=== PATIENT | male | born 1985 | race African-American/Black ===

== ENCOUNTER 2016-07-31 12:17 | Emergency (ER) | payer OTHER ==
[~2016-07-31 12:17] MED LIST: HYDR-2666; HYDR-971 PO; ONDA4TAB7 PO; lisinopril
[2016-07-31 12:45] VITALS: BP 140/86
--- NOTE | 2016-07-31 14:14 | RAD ---
Left ankle, 3 views, 07/31/2016: History: Injury, ankle pain No fracture or dislocation is identified. The soft tissues are unremarkable. IMPRESSION: No acute left ankle abnormality is detected.
--- NOTE | 2016-07-31 14:19 | PHYS DOC ---
Past Medical History Past Medical History: Hypertension, Pancreatitis Past Surgical History: Cholecystectomy Alcohol Use: None Drug Use: None, Cocaine Adult General Chief Complaint Chief Complaint: ANKLE PROBLEM HPI HPI Patient is a 31 year old male with complaint of atraumatic left ankle pain for approximately 3 days. Patient states that he believes is due to his new workout regimen that he just began recently. He states he has fractured his ankle past. Denies any known hardware within the ankle itself. Review of Systems Review of Systems Constitutional: Denies fever or chills [] Eyes: Denies change in visual acuity, redness, or eye pain [] HENT: Denies nasal congestion or sore throat [] Respiratory: Denies cough or shortness of breath [] Cardiovascular: No additional information not addressed in HPI [] GI: Denies abdominal pain, nausea, vomiting, bloody stools or diarrhea [] : Denies dysuria or hematuria [] Musculoskeletal: Denies back pain or joint pain [] Integument: Denies rash or skin lesions [] Neurologic: Denies headache, focal weakness or sensory changes [] Endocrine: Denies polyuria or polydipsia [] Allergies Allergies Allergies Coded Allergies Type Severity Reaction Last Updated Verified No Known Drug Allergies 12/24/15 No Physical Exam Physical Exam Constitutional: Well developed, well nourished, no acute distress, non-toxic appearance. [] HENT: Normocephalic, atraumatic, bilateral external ears normal, oropharynx moist, no oral exudates, nose normal. [] Eyes: PERRLA, EOMI, conjunctiva normal, no discharge. [] Neck: Normal range of motion, no tenderness, supple, no stridor. [] Cardiovascular:Heart rate regular rhythm, no murmur [] Lungs & Thorax: Bilateral breath sounds clear to auscultation [] Abdomen: Bowel sounds normal, soft, no tenderness, no masses, no pulsatile masses. [] Skin: Warm, dry, no erythema, no rash. [] Back: No tenderness, no CVA tenderness. [] Extremities: Left lower leg and ankle is normal in appearance. There is mild swelling of the medial malleolus. There is no focal area of tenderness, instability or crepitus. Left foot is normal in appearance. Skin is warm and dry. Patient strong dorsalis pedis and posterior tibialis pulses. Drawer and talar tilt are stable. Neurologic: Alert and oriented X 3, normal motor function, normal sensory function, no focal deficits noted. [] Psychologic: Affect normal, judgement normal, mood normal. [] Current Patient Data Vital Signs Vital Signs Date Time Temp Pulse Resp B/P Pulse Ox O2 Delivery O2 Flow Rate FiO2 07/31/16 12:45 97.9 92 20 100 Room Air 97.9 EKG EKG [] Radiology/Procedures Radiology/Procedures [facility] [address] [place] [address] IMAGING REPORT Signed PATIENT: BRANDO KIRAN ACCOUNT: [id number] : 1985 LOCATION: ER AGE: 31 SEX: M EXAM STATUS: PRE ER ORD. PHYSICIAN: CARLA NEAL REASON: pain/swelling to medial malleolus PROCEDURE: ANKLE LEFT 3V Left ankle, 3 views, 07/31/2016: History: Injury, ankle pain No fracture or dislocation is identified. The soft tissues are unremarkable. IMPRESSION: No acute left ankle abnormality is detected. DICTATED and SIGNED BY: TERRANCE JOSEPH MD DATE: 07/31/16 1411 CC: CARLA NEAL; NO PCP ~ Course & Med Decision Making Course & Med Decision Making Pertinent Labs and Imaging studies reviewed. (See chart for details) [] Dragon Disclaimer Dragon Disclaimer This electronic medical record was generated, in whole or in part, using a voice recognition dictation system. Departure Departure Impression: Primary Impression: Ankle pain Disposition: HOME, SELF-CARE Condition: GOOD Referrals: NO PCP (PCP) Patient Instructions: Ankle Pain Additional Instructions: 1. As discussed the x-rays of your ankle here today are normal. 2. Take the medication as prescribed. 3. Use the tablet provided for assistance in finding a primary care doctor to provide follow-up care. You can call one of the offices Wednesday to schedule follow-up appointment. Scripts Naproxen Sodium (Anaprox Ds)550 Mg [id number] Mg PO twice a day #20 Prov:CARLA NEAL 07/31/16 CARLA NEAL Jul 31, 2016 14:19
[2016-07-31] MEDS ORDERED: NAPR550T PO (14:34)
== END 2016-07-31 14:39 | disposition home or self-care (01) ==
LOC: ER 12:17
DX: M25.572 Pain in left ankle and joints of left foot (principal); I10 Essential (primary) hypertension; F14.10 Cocaine abuse, uncomplicated; Z87.81 Personal history of (healed) traumatic fracture
CPT/HCPCS: 73610; 99284

== ENCOUNTER 2016-10-23 17:30 | Emergency (ER) | payer OTHER ==
[~2016-10-23 17:30] MED LIST changes: +NAPR550T PO
[2016-10-23 18:42] LABS: BASO # 0.1 x10^3/uL (0.0-0.2); BASO % 1 % (0-3); EOS % 3 % (0-3); HEMATOCRIT 36.2 % (39.0-53.0); HEMOGLOBIN 11.9 g/dL (13.0-17.5); LYMPH # 3.7 x10^3/uL (1.0-4.8); LYMPH % 45 % (24-48); MEAN CORPUSCULAR HEMOGLOBIN 25 pg (25-35); MEAN CORPUSCULAR HGB CONC 33 g/dL (31-37); MEAN CORPUSCULAR VOLUME 75 fL (79-100); MONO % 7 % (0-9); NEUT % 45 % (31-73); PLATELET COUNT 262 x10^3/uL (140-400); RED BLOOD COUNT 4.82 x10^6/uL (4.30-5.70); RED CELL DISTRIBUTION WIDTH 14.6 % (11.5-14.5); WHITE BLOOD COUNT 8.2 x10^3/uL (4.0-11.0)
[2016-10-23 18:42] LABS: NEG OBC FOB NEG; POS OBC FOB POS
[2016-10-23] MEDS ORDERED: HYDROmorphone 2 MG/ML VIAL IV ONE (19:00)
[2016-10-23] MEDS ORDERED: PANTOPRAZOLE IV PUSH 40 MG VIAL. IVP ONE (19:00)
[2016-10-23] MEDS ORDERED: ONDANSETRON PF 4 MG/2 ML VIAL. IV ONE (19:00)
[2016-10-23 19:49] LABS: CREATININE 0.9 mg/dL (0.7-1.3); GFR 119.1; POTASSIUM 3.8 mmol/L (3.5-5.1)
[2016-10-23 19:55] LABS: ALBUMIN 3.4 g/dL (3.4-5.0); ALBUMIN/GLOBULIN RATIO 0.9 (1.0-1.7); TOTAL BILIRUBIN 0.1 mg/dL (0.2-1.0); TOTAL PROTEIN 7.4 g/dL (6.4-8.2)
[2016-10-23 19:58] VITALS: BP 132/64
[2016-10-23] MEDS ORDERED: HYDR-971 PO (20:27)
[2016-10-23] MEDS ORDERED: ONDA4TAB7 PO (20:27)
--- NOTE | 2016-10-23 20:28 | PHYS DOC ---
Past Medical History Past Medical History: Hypertension, Pancreatitis Past Surgical History: Cholecystectomy Alcohol Use: None Drug Use: None Adult General Chief Complaint Chief Complaint: BLOODY STOOL HPI HPI 31-year-old male is presenting with significant epigastrium and left upper quadrant pain with what he states to be dark stools for the last several days. Patient states he recently had endoscopy that did show some ulcerations. He was prescribed omeprazole 20 mg daily and he is compliant with this therapy but states his symptoms have not improved. Reports his stools are somewhat dark but can be bright red. He also has some rectal pain. He believes this is all a result of prior alcohol abuse. He has history of chronic pancreatitis as well. He denies any recent drugs or alcohol use. He rates his pain an 8/10 on the pain scale and is all localized to the left upper quadrant. Review of Systems Review of Systems Constitutional: Denies fever or chills [] Eyes: Denies change in visual acuity, redness, or eye pain [] HENT: Denies nasal congestion or sore throat [] Respiratory: Denies cough or shortness of breath [] Cardiovascular: No additional information not addressed in HPI [] GI: Has abdominal pain, denies nausea, denies vomiting, has bloody stools or diarrhea [] : Denies dysuria or hematuria [] Musculoskeletal: Denies back pain or joint pain [] Integument: Denies rash or skin lesions [] Neurologic: Denies headache, focal weakness or sensory changes [] Endocrine: Denies polyuria or polydipsia [] Current Medications Current Medications Current Medications Medications (Trade) Dose Ordered Sig/Salvador Start Time Stop Time Status Last Admin Dose Admin Hydromorphone HCl (Dilaudid) 1 mg 1X ONCE 10/23/16 19:00 10/23/16 19:01 DC 10/23/16 19:13 1 MG Ondansetron HCl (Zofran) 4 mg 1X ONCE 10/23/16 19:00 10/23/16 19:01 DC 10/23/16 19:12 4 MG Pantoprazole Sodium (Protonix Vial) 80 mg 1X ONCE 10/23/16 19:00 10/23/16 19:01 DC 10/23/16 19:15 80 MG Allergies Allergies Allergies Coded Allergies Type Severity Reaction Last Updated Verified No Known Drug Allergies 12/24/15 No Physical Exam Physical Exam Constitutional: Well developed, well nourished, no acute distress, non-toxic appearance. [] HENT: Normocephalic, atraumatic, bilateral external ears normal, oropharynx moist, no oral exudates, nose normal. [] Eyes: PERRLA, EOMI, conjunctiva normal, no discharge. [] Neck: Normal range of motion, no tenderness, supple, no stridor. [] Cardiovascular:Heart rate regular rhythm, no murmur [] Lungs & Thorax: Bilateral breath sounds clear to auscultation [] Abdomen: Bowel sounds normal, soft, no tenderness, no masses, no pulsatile masses. [] Skin: Warm, dry, no erythema, no rash. [] Back: No tenderness, no CVA tenderness. [] Extremities: No tenderness, no cyanosis, no clubbing, ROM intact, no edema. [] Neurologic: Alert and oriented X 3, normal motor function, normal sensory function, no focal deficits noted. [] Psychologic: Affect normal, judgement normal, mood normal. [] Current Patient Data Vital Signs Vital Signs Date Time Temp Pulse Resp B/P (MAP) Pulse Ox O2 Delivery O2 Flow Rate FiO2 10/23/16 20:11 Room Air 10/23/16 18:14 98.0 88 20 140/81 (100) 98 98.0 Lab Values Laboratory Tests Test 10/23/16 18:15 10/23/16 18:30 Stool Occult Blood Negative (NEG) White Blood Count 8.2 x10^3/uL (4.0-11.0) Red Blood Count 4.82 x10^6/uL (4.30-5.70) Hemoglobin 11.9 g/dL (13.0-17.5) L Hematocrit 36.2 % (39.0-53.0) L Mean Corpuscular Volume 75 fL (79-100) L Mean Corpuscular Hemoglobin 25 pg (25-35) Mean Corpuscular Hemoglobin Concent 33 g/dL (31-37) Red Cell Distribution Width 14.6 % (11.5-14.5) H Platelet Count 262 x10^3/uL (140-400) Neutrophils (%) (Auto) 45 % (31-73) Lymphocytes (%) (Auto) 45 % (24-48) Monocytes (%) (Auto) 7 % (0-9) Eosinophils (%) (Auto) 3 % (0-3) Basophils (%) (Auto) 1 % (0-3) Neutrophils # (Auto) 3.7 x10^3uL (1.8-7.7) Lymphocytes # (Auto) 3.7 x10^3/uL (1.0-4.8) Monocytes # (Auto) 0.5 x10^3/uL (0.0-1.1) Eosinophils # (Auto) 0.2 x10^3/uL (0.0-0.7) Basophils # (Auto) 0.1 x10^3/uL (0.0-0.2) Sodium Level 140 mmol/L (136-145) Potassium Level 3.8 mmol/L (3.5-5.1) Chloride Level 103 mmol/L (98-107) Carbon Dioxide Level 27 mmol/L (21-32) Anion Gap 10 (6-14) Blood Urea Nitrogen 8 mg/dL (8-26) Creatinine 0.9 mg/dL (0.7-1.3) Estimated GFR (Cockcroft-Gault) 119.1 BUN/Creatinine Ratio 9 (6-20) Glucose Level 120 mg/dL (70-99) H Calcium Level 9.0 mg/dL (8.5-10.1) Total Bilirubin 0.1 mg/dL (0.2-1.0) L Aspartate Amino Transferase (AST) 17 U/L (15-37) Alanine Aminotransferase (ALT) 28 U/L (16-63) Alkaline Phosphatase 97 U/L (46-116) Total Protein 7.4 g/dL (6.4-8.2) Albumin 3.4 g/dL (3.4-5.0) Albumin/Globulin Ratio 0.9 (1.0-1.7) L Lipase 101 U/L (73-393) Laboratory Tests 10/23/16 18:30 Laboratory Tests 10/23/16 18:30 EKG EKG [] Radiology/Procedures Radiology/Procedures [] Course & Med Decision Making Course & Med Decision Making Pertinent Labs and Imaging studies reviewed. (See chart for details) 31-year-old male with some mild epigastrium and left upper quadrant pain with concern for bloody bowel movements. He has a stool occult sample that is negative for blood. His hemoglobin is 11.9. His pain has been controlled relatively well. I do not see an indication this time do any other laboratory workup. I'll be discharging him with instruction to increase his omeprazole to twice daily and to follow-up with his GI doctor. Return precautions were provided if his bleeding should increase or his pain should worsen despite taking his medications. Dragon Disclaimer Dragon Disclaimer This electronic medical record was generated, in whole or in part, using a voice recognition dictation system. Departure Departure Impression: Primary Impression: Upper abdominal pain Additional Impression: Rectal bleed Disposition: 01 HOME, SELF-CARE Condition: IMPROVED Referrals: LIBBY RIBEIRO MD Patient Instructions: Peptic Ulcer Disease, [id number], Rectal Bleeding, Easy -to-Read Additional Instructions: Please follow up with your GI doctor as discussed in the next 2-3 days for your abdominal pain and bleeding. Take your omeprazole twice daily and pain medication as needed. Continue to drink plenty of fluids. Return to the ER if you develop any worsening of your symptoms. Scripts Ondansetron Hcl (ZOFRAN) 4 Mg Tablet 4 MG PO BID Y for NAUSEA/VOMITING, #10 TAB Prov: LIBBY HOWARD DO 10/23/16 Hydrocodone/Apap 5-325 (NORCO 5-325 TABLET) 1 Each Tablet 1 TAB PO PRN Q6HRS Y for PAIN, #10 TAB 0 Refills Prov: LIBBY HOWARD DO 10/23/16 Problem Qualifiers LIBBY HOWARD DO October 23, 2016 20:28
== END 2016-10-23 20:31 | disposition home or self-care (01) ==
LOC: ER 17:30
DX: K62.5 Hemorrhage of anus and rectum (principal); I10 Essential (primary) hypertension
CPT/HCPCS: 36415; 80053; 82274; 83690; 85027; 96374; 96375; 99284; C9113; J1170; J2405

== ENCOUNTER 2017-01-11 03:38 | Emergency (ER) | payer OTHER ==
[~2017-01-11] VITALS: Ht 170.2 cm; Wt 97.1 kg
[~2017-01-11 03:38] MED LIST changes: -HYDR-2666; +HYDR-2758
--- NOTE | 2017-01-11 03:48 | PHYS DOC ---
Past Medical History Past Medical History: Hypertension, Pancreatitis Past Surgical History: Cholecystectomy Alcohol Use: None Drug Use: None Adult General Chief Complaint Chief Complaint: FOOT INJURY PAIN HPI HPI Patient is a 31 year old M who presents with right foot pain. Patient states he twisted his foot while taking his dog out didn't drop something out of the freezer onto his right foot and complains of pain to the top of his right midfoot. Patient denies any other injuries. Patient is able to ambulate however with pain. Patient has no other complaints. Review of Systems Review of Systems GEN: Denies fevers, chills, sweats HEENT: Denies blurred vision, sore throat CV: Denies chest pain RESP: Denies shortness of air, cough GI: Denies n/v/d NEURO: Denies confusion, dizziness MSK: Right foot pain Current Medications Current Medications Current Medications Medications (Trade) Dose Ordered Sig/Salvador Start Time Stop Time Status Last Admin Dose Admin Ketorolac Tromethamine (Toradol Im) 60 mg 1X ONCE 01/11/17 05:00 01/11/17 05:01 01/11/17 04:44 60 MG Allergies Allergies Allergies Coded Allergies Type Severity Reaction Last Updated Verified No Known Drug Allergies 12/24/15 No Physical Exam Physical Exam GEN.: No apparent distress. Alert and oriented. HEENT: Head is normocephalic, atraumatic NECK: Supple. LUNGS: CTAB. HEART: RRR, S1, S2 present. Peripheral pulses intact ABDOMEN: Soft, nontender. Positive bowel sounds. EXTREMITIES: Without any cyanosis, tenderness palpation over the right midfoot, no swelling or erythema noted, capillary refill to the toes less than 2 seconds, positive dorsal pedis pulse present NEUROLOGIC: Normal speech, normal tone PSYCHIATRIC: Normal affect, normal mood. SKIN: No ulcerations Current Patient Data Vital Signs Vital Signs Date Time Temp Pulse Resp B/P (MAP) Pulse Ox O2 Delivery O2 Flow Rate FiO2 01/11/17 03:49 98.5 100 18 100 Room Air 98.5 EKG EKG [] Radiology/Procedures Radiology/Procedures X-ray of the foot shows no obvious fracture [] Course & Med Decision Making Course & Med Decision Making Pertinent Labs and Imaging studies reviewed. (See chart for details) ED course: Patient was seen and examined emergency room upon arrival x-ray of the right foot was ordered 0441: Updated patient on x-ray results and plan to discharge home with short- term follow-up with his PCP MDM: After reviewing the chart, CC/HPI/PMH, physical exam, [radiological results], I do not believe the patient sustained a significant injury to his right foot warranting further workup and/or admission at this time. Patient is stable for discharge. Recommended follow-up with his PCP in one to 2 days. Additional verbal discharge instructions were provided to the patient and that if symptoms get worse or any new symptoms arise that are worrisome to the patient he is to return to the emergency room immediately [] Dragon Disclaimer Dragon Disclaimer This electronic medical record was generated, in whole or in part, using a voice recognition dictation system. Departure Departure Impression: Primary Impression: Contusion of foot, right Disposition: 01 HOME, SELF-CARE Condition: IMPROVED Referrals: KENDELL VOSS MD (PCP) Patient Instructions: Foot Contusion, [id number] Additional Instructions: Please follow up with your family physician in the next one to 2 days and return symptoms increase Scripts Ibuprofen (IBUPROFEN) 800 Mg Tablet 800 MG PO PRN Q8MIN Y for INFLAMMATION for 10 Days, #30 TAB Prov: SÁNCHEZ LAGUNA DO 01/11/17 SÁNCHEZ LAGUNA DO Jan 11, 2017 03:48
[2017-01-11] MEDS ORDERED: IBUP-1060 PO (04:44)
[2017-01-11] MEDS ORDERED: KETOROLAC TROMETHAMINE 60 MG/2 ML INJ. IM ONE (05:00)
[2017-01-11 05:09] VITALS: BP 151/88
--- NOTE | 2017-01-11 07:33 | RAD ---
Indication injury, pain. AP oblique and lateral views of the right foot were obtained. No bony abnormality is seen
== END 2017-01-11 05:09 | disposition home or self-care (01) ==
LOC: ER 03:38
DX: S90.31XA Contusion of right foot, initial encounter (principal); I10 Essential (primary) hypertension; X50.9XXA Other and unspecified overexertion or strenuous movements or postures, initial encounter; Y93.89 Activity, other specified; Y99.8 Other external cause status; Y92.89 Other specified places as the place of occurrence of the external cause
CPT/HCPCS: 73630; 96372; 99284; J1885

== ENCOUNTER 2018-02-14 19:33 | Emergency (ER) | payer OTHER ==
[~2018-02-14] VITALS: Ht 172.7 cm; Wt 99.8 kg
[~2018-02-14 19:33] MED LIST changes: +IBUP-1060 PO; +NAPR-682 PO; -NAPR550T PO
[2018-02-14] MEDS: MORPHINE SULFATE 4 MG/ML VIAL. IV ONE (19:45)
[2018-02-14] MEDS: ONDANSETRON PF 4 MG/2 ML VIAL. IV ONE (19:45)
--- NOTE | 2018-02-14 19:52 | PHYS DOC ---
Past Medical History Past Medical History: Hypertension, Pancreatitis Past Surgical History: Cholecystectomy Alcohol Use: None Drug Use: None Adult General Chief Complaint Chief Complaint: ABDOMINAL PAIN HPI HPI Patient is a 32 year old male with a history of pancreatitis presents the ED complaining of abdominal pain times one day. Patient states he recently ran out of his oxycodone 7.5 mg. States he used to take 15 mg a day but his PCP has been weaning him off. States that the pain started yesterday. States he has not taken his pain medicine for 2 days. Describes the pain as sharp. Rates the pain as 7 out of 10. States he follows up with his PCP outpatient. States he had 2 episodes of vomiting; nonbloody, nonbilious. Denies fever, diarrhea, chest pain , shortness of breath, headache, rash, back pain or neck pain. Review of Systems Review of Systems Constitutional: Denies fever or chills [] Eyes: Denies change in visual acuity, redness, or eye pain [] HENT: Denies nasal congestion or sore throat [] Respiratory: Denies cough or shortness of breath [] Cardiovascular: No additional information not addressed in HPI [] GI: Complains of abdominal pain and nausea/vomiting. Denies bloody stools or diarrhea [] : Denies dysuria or hematuria [] Musculoskeletal: Denies back pain or joint pain [] Integument: Denies rash or skin lesions [] Neurologic: Denies headache, focal weakness or sensory changes [] All other systems were reviewed and found to be within normal limits, except as documented in this note. Current Medications Current Medications Current Medications Medications (Trade) Dose Ordered Sig/Salvador Start Time Stop Time Status Last Admin Dose Admin Morphine Sulfate (Morphine Sulfate) 4 mg 1X ONCE 02/14/18 19:45 02/14/18 19:46 DC 02/14/18 19:45 4 MG Ondansetron HCl (Zofran) 4 mg 1X ONCE 02/14/18 19:45 02/14/18 19:46 DC 02/14/18 19:45 4 MG Allergies Allergies Allergies Coded Allergies Type Severity Reaction Last Updated Verified No Known Drug Allergies 12/24/15 No Physical Exam Physical Exam Constitutional: Well developed, well nourished, no acute distress, non-toxic appearance. [] HENT: Normocephalic, atraumatic Neck: Normal range of motion, no tenderness, supple, no stridor. [] Cardiovascular:Heart rate regular rhythm, no murmur [] Lungs & Thorax: Bilateral breath sounds clear to auscultation [] Abdomen: Bowel sounds normal, soft, no tenderness, no masses, no pulsatile masses. [] Skin: Warm, dry, no erythema, no rash. [] Back: No tenderness, no CVA tenderness. [] Extremities: No tenderness, no cyanosis, no clubbing, ROM intact, no edema. [] Neurologic: Alert and oriented X 3, normal motor function, normal sensory function, no focal deficits noted. [] Psychologic: Affect normal, judgement normal, mood normal. [] Current Patient Data Vital Signs Vital Signs Date Time Temp Pulse Resp B/P (MAP) Pulse Ox O2 Delivery O2 Flow Rate FiO2 02/14/18 21:49 77 20 146/78 (100) 99 02/14/18 19:40 98.3 Room Air 98.3 Lab Values Laboratory Tests Test 02/14/18 20:04 White Blood Count 8.4 x10^3/uL (4.0-11.0) Red Blood Count 4.93 x10^6/uL (4.30-5.70) Hemoglobin 12.1 g/dL (13.0-17.5) L Hematocrit 36.7 % (39.0-53.0) L Mean Corpuscular Volume 74 fL (79-100) L Mean Corpuscular Hemoglobin 25 pg (25-35) Mean Corpuscular Hemoglobin Concent 33 g/dL (31-37) Red Cell Distribution Width 14.0 % (11.5-14.5) Platelet Count 262 x10^3/uL (140-400) Neutrophils (%) (Auto) 45 % (31-73) Lymphocytes (%) (Auto) 35 % (24-48) Monocytes (%) (Auto) 15 % (0-9) H Eosinophils (%) (Auto) 4 % (0-3) H Basophils (%) (Auto) 1 % (0-3) Neutrophils # (Auto) 3.8 x10^3uL (1.8-7.7) Lymphocytes # (Auto) 2.9 x10^3/uL (1.0-4.8) Monocytes # (Auto) 1.3 x10^3/uL (0.0-1.1) H Eosinophils # (Auto) 0.4 x10^3/uL (0.0-0.7) Basophils # (Auto) 0.1 x10^3/uL (0.0-0.2) Sodium Level 137 mmol/L (136-145) Potassium Level 3.8 mmol/L (3.5-5.1) Chloride Level 103 mmol/L (98-107) Carbon Dioxide Level 28 mmol/L (21-32) Anion Gap 6 (6-14) Blood Urea Nitrogen 12 mg/dL (8-26) Creatinine 1.1 mg/dL (0.7-1.3) Estimated GFR (Cockcroft-Gault) 93.9 BUN/Creatinine Ratio 11 (6-20) Glucose Level 103 mg/dL (70-99) H Calcium Level 8.7 mg/dL (8.5-10.1) Total Bilirubin 0.2 mg/dL (0.2-1.0) Aspartate Amino Transferase (AST) 17 U/L (15-37) Alanine Aminotransferase (ALT) 41 U/L (16-63) Alkaline Phosphatase 96 U/L (46-116) Total Protein 7.4 g/dL (6.4-8.2) Albumin 3.7 g/dL (3.4-5.0) Albumin/Globulin Ratio 1.0 (1.0-1.7) Lipase 98 U/L (73-393) Laboratory Tests 02/14/18 20:04 Laboratory Tests 02/14/18 20:04 EKG EKG [] Radiology/Procedures Radiology/Procedures [] Course & Med Decision Making Course & Med Decision Making Pertinent Labs and Imaging studies reviewed. (See chart for details) []Discussed lab findings with patient. Patient's abdominal pain resolved in the ED. States he is feeling much better. On reexamination, abdomen is soft nontender nondistended. No peritoneal signs. Tolerating by mouth. Discussed symptomatic treatment outpatient. Discussed follow-up with PCP this week. Patient states he has an appointment. Discussed reasons to return to the ED. Patient understands and agrees with plan. Dragon Disclaimer Dragon Disclaimer This electronic medical record was generated, in whole or in part, using a voice recognition dictation system. Departure Departure Impression: Primary Impression: Upper abdominal pain Disposition: 01 HOME, SELF-CARE Condition: IMPROVED Referrals: Kelvin LAIRD MD (PCP) Patient Instructions: Acute Pancreatitis Scripts Oxycodone/Apap 5-325 (PERCOCET 5-325 MG TABLET) 1 Each Tablet 1 TAB PO BID for 4 Days, #8 TAB Prov: RAJI FARFAN 02/14/18 RAJI FARFAN Feb 14, 2018 19:52
[2018-02-14 20:13] LABS: BASO # 0.1 x10^3/uL (0.0-0.2); BASO % 1 % (0-3); EOS # 0.4 x10^3/uL (0.0-0.7); EOS % 4 % (0-3); HEMATOCRIT 36.7 % (39.0-53.0); HEMOGLOBIN 12.1 g/dL (13.0-17.5); LYMPH # 2.9 x10^3/uL (1.0-4.8); LYMPH % 35 % (24-48); MEAN CORPUSCULAR HEMOGLOBIN 25 pg (25-35); MEAN CORPUSCULAR HGB CONC 33 g/dL (31-37); MEAN CORPUSCULAR VOLUME 74 fL (79-100); MONO # 1.3 x10^3/uL (0.0-1.1); MONO % 15 % (0-9); NEUT # 3.8 x10^3uL (1.8-7.7); NEUT % 45 % (31-73); PLATELET COUNT 262 x10^3/uL (140-400); RED BLOOD COUNT 4.93 x10^6/uL (4.30-5.70); WHITE BLOOD COUNT 8.4 x10^3/uL (4.0-11.0)
[2018-02-14 20:21] LABS: CALCIUM 8.7 mg/dL (8.5-10.1); CREATININE 1.1 mg/dL (0.7-1.3); GFR 93.9; POTASSIUM 3.8 mmol/L (3.5-5.1)
[2018-02-14 20:29] LABS: ALBUMIN 3.7 g/dL (3.4-5.0); TOTAL BILIRUBIN 0.2 mg/dL (0.2-1.0); TOTAL PROTEIN 7.4 g/dL (6.4-8.2)
[2018-02-14] MEDS ORDERED: OXYC-323 PO (21:24)
[2018-02-14 21:49] VITALS: BP 146/78
== END 2018-02-14 21:50 | disposition home or self-care (01) ==
LOC: ER 19:33
DX: R10.10 Upper abdominal pain, unspecified (principal); R11.10 Vomiting, unspecified; I10 Essential (primary) hypertension; Z90.49 Acquired absence of other specified parts of digestive tract; Z87.19 Personal history of other diseases of the digestive system
CPT/HCPCS: 36415; 80053; 83690; 85025; 96374; 96375; 99284; J2270; J2405

== ENCOUNTER 2018-09-26 21:04 | Emergency (ER) | payer OTHER ==
[~2018-09-26] VITALS: Ht 172.7 cm; Wt 102.1 kg
[~2018-09-26 21:04] MED LIST changes: -HYDR-2758; +HYDR-2761; +HYDR-3164 PO; -HYDR-971 PO; +OXYC1TAB15 PO
[2018-09-27] MEDS ORDERED: IV NORMAL SALINE 1000ML BAG 1,000 ML IV ONE (00:30)
[2018-09-27] MEDS ORDERED: fentaNYL PF VIAL 100 MCG/2 ML VIAL IV ONE (00:30)
[2018-09-27] MEDS ORDERED: LIDO:MAALOX 1:1 20 ML SINGLE DOSE. SWSW ONE (00:30)
--- NOTE | 2018-09-27 00:31 | PHYS DOC ---
Past Medical History Past Medical History: Hypertension, Pancreatitis Past Surgical History: Cholecystectomy Alcohol Use: None Drug Use: None Adult General Chief Complaint Chief Complaint: ABDOMINAL PAIN HPI HPI Patient is a 33 year old male who presents with severe epigastric pain for the last two days. Pt has a history of chronic pancreatitis, diagnosed in 2016, with repeat episodes similar to this current episode. He reports the pain is 8/10, burning and located in the center of his epigastric region. He reports that his abdominal pain has been increasing off and on over the last few months and his primary GI doc ordered an EGD Wednesday. This episode of pain began Wednesday. He reports that a duodenal polyp was removed during this EGD and he had 7 polyps removed in Oct, 2017. He reports diminished appetite. He denies reflux, SOB, CP, f/c. He reports nausea but denies vomiting. He reports increased constipation over the last two days. He denies blood per rectum and bloody stools.[] Review of Systems Review of Systems Constitutional: Denies fever or chills [] Eyes: Denies change in visual acuity, redness, or eye pain [] HENT: Denies nasal congestion or sore throat [] Respiratory: Denies cough or shortness of breath [] Cardiovascular: No additional information not addressed in HPI [] GI: Chronic pancreatitis since 2016 with increasing frequency of epigastric pain and nausea. Denies vomiting, bloody stools or diarrhea [] : Denies dysuria or hematuria [] Musculoskeletal: Denies back pain or joint pain [] Integument: Denies rash or skin lesions [] Neurologic: Denies headache, focal weakness or sensory changes [] Endocrine: Denies polyuria or polydipsia [] All other systems were reviewed and found to be within normal limits, except as documented in this note. Current Medications Current Medications Current Medications Medications (Trade) Dose Ordered Sig/Salvador Start Time Stop Time Status Last Admin Dose Admin Fentanyl Citrate (Fentanyl 2ml Vial) 50 mcg 1X ONCE 09/27/18 00:30 09/27/18 00:35 DC 09/27/18 00:48 50 MCG Info (CONTRAST GIVEN -- Rx MONITORING) 1 each PRN DAILY PRN 09/27/18 01:15 09/29/18 01:14 Iohexol (Omnipaque 300 Mg/ml) 75 ml 1X ONCE 09/27/18 01:15 09/27/18 01:16 DC 09/27/18 01:07 75 ML Multi-Ingredient Mouthwash/Gargle (Gi Cocktail) 20 ml 1X ONCE 09/27/18 00:30 09/27/18 00:35 DC 09/27/18 00:48 20 ML Sodium Chloride 1,000 ml @ 1,000 mls/hr 1X ONCE 09/27/18 00:30 09/27/18 01:29 DC 09/27/18 00:47 1,000 MLS/HR see med list Allergies Allergies Allergies Coded Allergies Type Severity Reaction Last Updated Verified No Known Drug Allergies 12/24/15 No Physical Exam Physical Exam Constitutional: Well developed, well nourished, appears uncomfortable, non-toxic appearance. [] HENT: Normocephalic, atraumatic, bilateral external ears normal, oropharynx fito st, no oral exudates, nose normal. [] Eyes: PERRLA, EOMI, conjunctiva normal, no discharge. [] Neck: Normal range of motion, no tenderness, supple, no stridor. [] Cardiovascular:Heart rate regular rhythm, no murmur [] Lungs & Thorax: Bilateral breath sounds clear to auscultation, no wheezes, crackles, rales [] Abdomen: Multiple healed surgical scars observed, Bowel sounds normal, soft, ten beverley to palpation in epigastric region and RLQ, no organomegaly appreciated, no pulsatile masses. [] Skin: Warm, dry, no erythema, no rash. [] Back: No tenderness, no CVA tenderness. [] Extremities: No tenderness, no cyanosis, no clubbing, ROM intact, no edema. [] Neurologic: Alert and oriented X 3, normal motor function, normal sensory function, no focal deficits noted. [] Psychologic: Affect normal, judgement normal, mood normal. [] Current Patient Data Vital Signs Vital Signs Date Time Temp Pulse Resp B/P (MAP) Pulse Ox O2 Delivery O2 Flow Rate FiO2 09/27/18 00:48 16 09/26/18 23:43 84 166/90 (115) 100 Room Air 09/26/18 21:25 98.9 98.9 Lab Values Laboratory Tests Test 09/27/18 00:01 White Blood Count 9.8 x10^3/uL (4.0-11.0) Red Blood Count 4.85 x10^6/uL (4.30-5.70) Hemoglobin 11.3 g/dL (13.0-17.5) L Hematocrit 36.2 % (39.0-53.0) L Mean Corpuscular Volume 75 fL (79-100) L Mean Corpuscular Hemoglobin 23 pg (25-35) L Mean Corpuscular Hemoglobin Concent 31 g/dL (31-37) Red Cell Distribution Width 14.9 % (11.5-14.5) H Platelet Count 296 x10^3/uL (140-400) Neutrophils (%) (Auto) 54 % (31-73) Lymphocytes (%) (Auto) 38 % (24-48) Monocytes (%) (Auto) 7 % (0-9) Eosinophils (%) (Auto) 1 % (0-3) Basophils (%) (Auto) 1 % (0-3) Neutrophils # (Auto) 5.3 x10^3uL (1.8-7.7) Lymphocytes # (Auto) 3.7 x10^3/uL (1.0-4.8) Monocytes # (Auto) 0.7 x10^3/uL (0.0-1.1) Eosinophils # (Auto) 0.0 x10^3/uL (0.0-0.7) Basophils # (Auto) 0.1 x10^3/uL (0.0-0.2) Sodium Level 139 mmol/L (136-145) Potassium Level 3.6 mmol/L (3.5-5.1) Chloride Level 102 mmol/L (98-107) Carbon Dioxide Level 26 mmol/L (21-32) Anion Gap 11 (6-14) Blood Urea Nitrogen 13 mg/dL (8-26) Creatinine 0.7 mg/dL (0.7-1.3) Estimated GFR (Cockcroft-Gault) 157.2 BUN/Creatinine Ratio 19 (6-20) Glucose Level 103 mg/dL (70-99) H Calcium Level 9.3 mg/dL (8.5-10.1) Total Bilirubin 0.1 mg/dL (0.2-1.0) L Aspartate Amino Transferase (AST) 17 U/L (15-37) Alanine Aminotransferase (ALT) 31 U/L (16-63) Alkaline Phosphatase 79 U/L (46-116) Total Protein 7.8 g/dL (6.4-8.2) Albumin 4.0 g/dL (3.4-5.0) Albumin/Globulin Ratio 1.1 (1.0-1.7) Lipase 188 U/L (73-393) Laboratory Tests 09/27/18 00:01 Laboratory Tests 09/27/18 00:01 EKG EKG [] Radiology/Procedures Radiology/Procedures FINDINGS: Abdominal aorta is not aneurysmal. Prominence of intrahepatic bile ducts postcholecystectomy which is a common finding postoperatively. No peripancreatic fluid collection. Spleen is unremarkable. No left-sided hydronephrosis. Urinary bladder is partially distended with questionable mild indistinctness of adjacent fat. No right-sided hydronephrosis. No periappendiceal inflammation. No dilated loops of bowel to suggest obstruction. Sclerotic focus right greater than left proximal femur. Most commonly from bone island. There are some scattered sclerotic foci within the pelvis as well. Degenerative changes of spine with disc protrusions and osteophyte formation with resultant central canal and neural foraminal stenosis including at L4-5 and L5-S1 IMPRESSION: 1. No definite evidence of intraperitoneal free air. 2. Questionable mild indistinctness the fat adjacent to urinary bladder. Most likely cause is artifact unless there is clinical concern for pathologic causes such as mild cystitis which is considered less likely. 3. No periappendiceal inflammation. Electronically signed by: Christopher Israel MD (09/27/2018 2:06 AM) [facility] DICTATED and SIGNED BY: CHRISTOPHER ISRAEL MD DATE: 09/27/18 0206 [] Course & Med Decision Making Course & Med Decision Making Pertinent Labs and Imaging studies reviewed. (See chart for details) Pt presents with 2 days epigastric pain following EGD for increased abdominal pa in in setting of chronic pancreatitis. Symptoms are consistent with chronic pancreatitis flare up. However, given acuity of symptoms following EGD with polyp biopsy will, concerned for possible bowel perforation. Will CT abdomen for evaluation. Expecting lipase to be low given history of chronic pancreatitis. NPO with pain control. No antibiotics indicated at this time. CT NEGATIVE FOR PERFORATION. PT NOT HAVNG ANY DYSURIA SLEEPING COMFORTABLY IN THE ED UPON RE-EVAL BURNING PAIN COULD BE GASTRITIS IN NATURE. RECOMMEDNED OMEPRAZOLE, SHORT COURSE NORCO HE KNOWS THIS IS ONLY FOR A FEW DAYS RETURN PREC DISCUSSED F/U [facility] GI [] Larry Disclaimer Larry Disclaimer This electronic medical record was generated, in whole or in part, using a voice recognition dictation system. Departure Departure Impression: Primary Impression: Upper abdominal pain Disposition: HOME, SELF-CARE Condition: STABLE Referrals: UNKNOWN PCP NAME (PCP) Scripts Hydrocodone/Apap 5-325 (NORCO 5-325 TABLET) 1 Each Tablet 1-2 EACH PO PRN Q6HRS PRN for PAIN, #15 as needed for pain Prov: JOSE PANIAGUA MD 09/27/18 Omeprazole (OMEPRAZOLE) 40 Mg Capsule. 1 CAP PO DAILY, #30 CAP 0 Refills Prov: JOSE PANIAGUA MD 09/27/18 JOSE PANIAGUA MD Sep 27, 2018 00:31
[2018-09-27 00:42] LABS: BASO # 0.1 x10^3/uL (0.0-0.2); BASO % 1 % (0-3); CALCIUM 9.3 mg/dL (8.5-10.1); CREATININE 0.7 mg/dL (0.7-1.3); EOS % 1 % (0-3); GFR 157.2; HEMATOCRIT 36.2 % (39.0-53.0); HEMOGLOBIN 11.3 g/dL (13.0-17.5); LYMPH # 3.7 x10^3/uL (1.0-4.8); LYMPH % 38 % (24-48); MEAN CORPUSCULAR HEMOGLOBIN 23 pg (25-35); MEAN CORPUSCULAR HGB CONC 31 g/dL (31-37); MEAN CORPUSCULAR VOLUME 75 fL (79-100); MONO # 0.7 x10^3/uL (0.0-1.1); MONO % 7 % (0-9); NEUT # 5.3 x10^3uL (1.8-7.7); NEUT % 54 % (31-73); PLATELET COUNT 296 x10^3/uL (140-400); POTASSIUM 3.6 mmol/L (3.5-5.1); RED BLOOD COUNT 4.85 x10^6/uL (4.30-5.70); RED CELL DISTRIBUTION WIDTH 14.9 % (11.5-14.5); WHITE BLOOD COUNT 9.8 x10^3/uL (4.0-11.0)
[2018-09-27 00:53] LABS: ALBUMIN/GLOBULIN RATIO 1.1 (1.0-1.7); TOTAL BILIRUBIN 0.1 mg/dL (0.2-1.0); TOTAL PROTEIN 7.8 g/dL (6.4-8.2)
[2018-09-27] MEDS ORDERED: CONTRAST GIVEN. MC PRN (01:15)
[2018-09-27] MEDS ORDERED: IOHEXOL 300 MG/ML 100ML VIAL. IV ONE (01:15)
--- NOTE | 2018-09-27 02:09 | RAD ---
INDICATION: abd pain; hx endoscopy;eval for perf; Omni 300, 75ml COMPARISON: March 04, 2014 TECHNIQUE: Axial CT images obtained through the abdomen and pelvis with contrast. The images were made available for review at approximately 1:58 AM on date of exam. One or more of the following individualized dose reduction techniques were utilized for this examination: 1. Automated exposure control; 2. Adjustment of the mA and/or kV according to patient size; 3. Use of iterative reconstruction technique. FINDINGS: Abdominal aorta is not aneurysmal. Prominence of intrahepatic bile ducts postcholecystectomy which is a common finding postoperatively. No peripancreatic fluid collection. Spleen is unremarkable. No left-sided hydronephrosis. Urinary bladder is partially distended with questionable mild indistinctness of adjacent fat. No right-sided hydronephrosis. No periappendiceal inflammation. No dilated loops of bowel to suggest obstruction. Sclerotic focus right greater than left proximal femur. Most commonly from bone island. There are some scattered sclerotic foci within the pelvis as well. Degenerative changes of spine with disc protrusions and osteophyte formation with resultant central canal and neural foraminal stenosis including at L4-5 and L5-S1 IMPRESSION: 1. No definite evidence of intraperitoneal free air. 2. Questionable mild indistinctness the fat adjacent to urinary bladder. Most likely cause is artifact unless there is clinical concern for pathologic causes such as mild cystitis which is considered less likely. 3. No periappendiceal inflammation. Electronically signed by: Zaki Israel MD (09/27/2018 2:06 AM) [facility]
[2018-09-27] MEDS ORDERED: HYDR-3164 PO (02:39)
[2018-09-27] MEDS ORDERED: OMEP40CA5 PO (02:39)
[2018-09-27 02:43] VITALS: BP 134/78
== END 2018-09-27 03:00 | disposition home or self-care (01) ==
LOC: ER 21:04
DX: R10.13 Epigastric pain (principal); R10.31 Right lower quadrant pain; R11.0 Nausea; I10 Essential (primary) hypertension; Z90.49 Acquired absence of other specified parts of digestive tract
CPT/HCPCS: 36415; 74177; 80053; 83690; 85025; 96374; 99285; J3010; J7030; Q9967

== ENCOUNTER 2018-10-02 21:47 | Emergency (ER) | payer OTHER ==
[~2018-10-02] VITALS: Ht 172.7 cm; Wt 102.1 kg
[~2018-10-02 21:47] MED LIST changes: +OMEP40CA5 PO
[2018-10-02 22:26] LABS: BASO # 0.1 x10^3/uL (0.0-0.2); BASO % 1 % (0-3); EOS # 0.1 x10^3/uL (0.0-0.7); EOS % 1 % (0-3); HEMATOCRIT 38.3 % (39.0-53.0); LYMPH % 41 % (24-48); MEAN CORPUSCULAR HEMOGLOBIN 24 pg (25-35); MEAN CORPUSCULAR HGB CONC 31 g/dL (31-37); MEAN CORPUSCULAR VOLUME 75 fL (79-100); MONO # 0.5 x10^3/uL (0.0-1.1); MONO % 6 % (0-9); NEUT # 3.6 x10^3uL (1.8-7.7); NEUT % 50 % (31-73); PLATELET COUNT 338 x10^3/uL (140-400); RED BLOOD COUNT 5.08 x10^6/uL (4.30-5.70); RED CELL DISTRIBUTION WIDTH 15.6 % (11.5-14.5); WHITE BLOOD COUNT 7.2 x10^3/uL (4.0-11.0)
[2018-10-02 22:34] LABS: CALCIUM 9.2 mg/dL (8.5-10.1); CREATININE 0.9 mg/dL (0.7-1.3); GFR 117.6; POTASSIUM 4.2 mmol/L (3.5-5.1)
[2018-10-02 22:44] LABS: ALBUMIN 3.9 g/dL (3.4-5.0); ALBUMIN/GLOBULIN RATIO 0.9 (1.0-1.7); TOTAL BILIRUBIN 0.1 mg/dL (0.2-1.0); TOTAL PROTEIN 8.1 g/dL (6.4-8.2)
[2018-10-02] MEDS ORDERED: ONDANSETRON PF 4 MG/2 ML VIAL. IV ONE (23:00)
[2018-10-02] MEDS ORDERED: IV NORMAL SALINE 1000ML BAG 1,000 ML IV SCH (23:00)
[2018-10-02] MEDS ORDERED: LIDO:MAALOX 1:1 20 ML SINGLE DOSE. PO ONE (23:00)
--- NOTE | 2018-10-02 23:14 | PHYS DOC ---
Past Medical History Past Medical History: Hypertension, Pancreatitis, Other Additional Past Medical Histor: chronic pancreatitis (QUINTIN GUZMAN APRN) Past Surgical History: Cholecystectomy (QUINTIN GUZMAN APRN) Additional Information: non smoker Alcohol Use: None Drug Use: None (QUINTIN GUZMAN APRN) Adult General Chief Complaint Chief Complaint: ABDOMINAL PAIN HPI HPI Patient is a 33-year-old male who presents to the ER with diffuse abdominal pain has been ongoing for a month. The patient has a history of chronic pancreatitis. He is also had a surgery to take out his gallbladder. The patient says he came last week as well for the same complaint. Nothing was found during that workup. He has a surgical scar on his stomach from when the gallbladder was taken out. He describes the pain as a burning pain and and the worst is in that region and is 8/10 in severity. He states he is tried Protonix and Newry's at home and they 're not helping. (QUINTIN GUZMAN APRN) Review of Systems Review of Systems Constitutional: Denies fever or chills [] Eyes: Denies change in visual acuity, redness, or eye pain [] HENT: Denies nasal congestion or sore throat [] Respiratory: Denies cough or shortness of breath [] Cardiovascular: Denies chest pain or syncope. GI: Reports abdominal pain, intermittent nausea, and vomiting, denies bloody stools or diarrhea [] : Denies dysuria or hematuria [] Musculoskeletal: Denies back pain or joint pain [] Integument: Denies rash or skin lesions [] Neurologic: Denies headache, focal weakness or sensory changes [] Endocrine: Denies polyuria or polydipsia [] Complete systems were reviewed and found to be within normal limits, except as documented in this note. (QUINTIN GUZMAN APRN) Current Medications Current Medications Current Medications Medications (Trade) Dose Ordered Sig/Salvador Start Time Stop Time Status Last Admin Dose Admin Info (CONTRAST GIVEN -- Rx MONITORING) 1 each PRN DAILY PRN 10/02/18 23:15 10/03/18 01:58 DC Iohexol (Omnipaque 240 Mg/ml) 30 ml 1X ONCE 10/02/18 23:30 10/02/18 23:31 DC 10/02/18 00:30 30 ML Iohexol (Omnipaque 300 Mg/ml) 75 ml 1X ONCE 10/02/18 23:30 10/02/18 23:31 DC 10/02/18 00:30 75 ML Morphine Sulfate (Morphine Sulfate) 4 mg 1X ONCE 10/03/18 01:00 10/03/18 01:01 DC 10/03/18 00:48 4 MG Multi-Ingredient Mouthwash/Gargle (Gi Cocktail) 20 ml 1X ONCE 10/02/18 23:00 10/02/18 23:01 DC 10/02/18 23:53 20 ML Ondansetron HCl (Zofran) 4 mg 1X ONCE 10/02/18 23:00 10/02/18 23:01 DC 10/02/18 23:53 4 MG Prochlorperazine Edisylate (Compazine) 10 mg 1X ONCE 10/03/18 01:00 10/03/18 01:01 DC 10/03/18 00:48 10 MG Sodium Chloride 1,000 ml @ 1,000 mls/hr Q1H 10/02/18 23:00 10/03/18 00:01 DC 10/02/18 23:53 1,000 MLS/HR (QUINTIN CURTIS DO) Allergies Allergies Allergies Coded Allergies Type Severity Reaction Last Updated Verified No Known Drug Allergies 12/24/15 No (QUINTIN CURTIS DO) Physical Exam Physical Exam Constitutional: Well developed, well nourished, no acute distress, non-toxic ap pearance. [] HENT: Normocephalic, atraumatic, oropharynx moist, no oral exudates, nose normal. [] Eyes: PERRLA, conjunctiva normal, no discharge. [] Neck: Normal range of motion, no tenderness, supple, no stridor. [] Cardiovascular:Heart rate regular rhythm, no murmur [] Lungs & Thorax: Bilateral breath sounds clear to auscultation [] Abdomen: Bowel sounds normal, soft, diffuse tenderness, no masses, no pulsatile masses. [] Skin: Warm, dry, no erythema, no rash. [] Back: No tenderness, no CVA tenderness. [] Extremities: No tenderness, ROM intact, no edema. [] Neurologic: Alert and oriented X 3, normal motor function, normal sensory function, no focal deficits noted. [] Psychologic: Affect normal, judgement normal, mood normal. [] (GUZMAN,QUINTIN STOCK WORKER) Current Patient Data Vital Signs Vital Signs Date Time Temp Pulse Resp B/P (MAP) Pulse Ox O2 Delivery O2 Flow Rate FiO2 10/03/18 00:53 82 16 120/73 (89) 98 Room Air 10/02/18 22:00 98.5 98.5 (CURTISQUINTIN DO) Lab Values Laboratory Tests Test 10/02/18 22:00 10/03/18 01:10 White Blood Count 7.2 x10^3/uL (4.0-11.0) Red Blood Count 5.08 x10^6/uL (4.30-5.70) Hemoglobin 12.0 g/dL (13.0-17.5) L Hematocrit 38.3 % (39.0-53.0) L Mean Corpuscular Volume 75 fL (79-100) L Mean Corpuscular Hemoglobin 24 pg (25-35) L Mean Corpuscular Hemoglobin Concent 31 g/dL (31-37) Red Cell Distribution Width 15.6 % (11.5-14.5) H Platelet Count 338 x10^3/uL (140-400) Neutrophils (%) (Auto) 50 % (31-73) Lymphocytes (%) (Auto) 41 % (24-48) Monocytes (%) (Auto) 6 % (0-9) Eosinophils (%) (Auto) 1 % (0-3) Basophils (%) (Auto) 1 % (0-3) Neutrophils # (Auto) 3.6 x10^3uL (1.8-7.7) Lymphocytes # (Auto) 3.0 x10^3/uL (1.0-4.8) Monocytes # (Auto) 0.5 x10^3/uL (0.0-1.1) Eosinophils # (Auto) 0.1 x10^3/uL (0.0-0.7) Basophils # (Auto) 0.1 x10^3/uL (0.0-0.2) Sodium Level 140 mmol/L (136-145) Potassium Level 4.2 mmol/L (3.5-5.1) Chloride Level 102 mmol/L (98-107) Carbon Dioxide Level 28 mmol/L (21-32) Anion Gap 10 (6-14) Blood Urea Nitrogen 11 mg/dL (8-26) Creatinine 0.9 mg/dL (0.7-1.3) Estimated GFR (Cockcroft-Gault) 117.6 BUN/Creatinine Ratio 12 (6-20) Glucose Level 119 mg/dL (70-99) H Calcium Level 9.2 mg/dL (8.5-10.1) Total Bilirubin 0.1 mg/dL (0.2-1.0) L Aspartate Amino Transferase (AST) 18 U/L (15-37) Alanine Aminotransferase (ALT) 34 U/L (16-63) Alkaline Phosphatase 84 U/L (46-116) Total Protein 8.1 g/dL (6.4-8.2) Albumin 3.9 g/dL (3.4-5.0) Albumin/Globulin Ratio 0.9 (1.0-1.7) L Lipase 171 U/L (73-393) Urine Collection Type Unknown Urine Color Yellow Urine Clarity Clear Urine pH 6.0 Urine Specific [place] >=1.030 Urine Protein Negative mg/dL (NEG-TRACE) Urine Glucose (UA) Negative mg/dL (NEG) Urine Ketones (Stick) Negative mg/dL (NEG) Urine Blood Negative (NEG) Urine Nitrite Negative (NEG) Urine Bilirubin Negative (NEG) Urine Urobilinogen Dipstick 0.2 mg/dL (0.2 mg/dL) Urine Leukocyte Esterase Negative (NEG) Urine RBC 0 /HPF (0-2) Urine WBC 0 /HPF (0-4) Urine Squamous Epithelial Cells None /LPF Urine Bacteria 0 /HPF (0-FEW) Urine Mucus Slight /LPF Laboratory Tests 10/02/18 22:00 Laboratory Tests 10/02/18 22:00 (QUINTIN CURTIS DO) EKG EKG [] (QUINTIN GUZMAN APRN) Radiology/Procedures Radiology/Procedures []PATIENT: LAKISHA STANLEYCCOUNT: [id number]#: [id number] : 1985 LOCATION: ER AGE: 33 SEX: M EXAM STATUS: REG ER ORD. PHYSICIAN: QUINTIN GUZMAN APRN REASON: diffuse abdominal; abdominal pain near a past surgical site PROCEDURE: CT ABD PELV W/ORAL&IV CONTRAST PQRS Compliance statement: One or more of the following individualized dose reduction techniques were utilized for this examination: 1. Automated exposure control. 2. Adjustment of the mA and/or kV according to patient size. 3. Use of iterative reconstruction technique. Indication:ABD PAIN:OMNI 300, 75ML; OMNI 240, 30ML TECHNIQUE: CT abdomen and pelvis with IV contrast with multiplanar reformats. COMPARISON: 09/27/2018 FINDINGS: Heart is normal in size. No pericardial or pleural effusion. Clear lung bases. Liver, spleen, pancreas, adrenals and kidneys are within normal limits. No free pelvic fluid or ascites. No enlarged retroperitoneal or pelvic adenopathy. The prostate and seminal vesicles show no large mass. No bowel obstruction. Appendix is not seen. No right lower quadrant inflammatory changes. Urinary bladder is within normal limits. No pneumoperitoneum. No suspicious bony lesion. Couple of sclerotic foci in the right femur and right iliac bone most likely bony island. IMPRESSION: 1. No bowel obstruction. 2. No nephrolithiasis or hydronephrosis. Electronically signed by: Gonzalez Harmon DO (10/03/2018 1:07 AM) [facility] (QUINTIN GUZMAN APRN) Course & Med Decision Making Course & Med Decision Making Pertinent Labs and Imaging studies reviewed. (See chart for details) Talked to patient about his s/s. Informed him that if we do not find anything it might be prudent to follow up with GI. Will order GI cocktail, zofran, and fluids as well as evaluate with labs and CT scan. Patient is agreeable to plan of care. 12:15: Reevaluated patient, GI cocktail did not reduce the pain. Patient had also thrown up. Will order more nausea and pain medication. Labs are unremarkable with the exception of his Hemoglobin. It is 12. This has improved since last week. 1:15: Talked with patient. Workup is normal so far. Patient is agreeable to the plan of following up with GI. Will prescribe some nausea medication to help with nausea. Still waiting on Urinalysis at this time. 1:35: Urinalysis was normal. Will discharge patient home. (QUINTIN GUZMAN APRN) Dragon Disclaimer Dragon Disclaimer This electronic medical record was generated, in whole or in part, using a voice recognition dictation system. (QUINTIN GUZMAN APRN) Departure Departure Impression: Primary Impression: Abdominal pain Disposition: HOME, SELF-CARE Condition: STABLE Referrals: UNKNOWN PCP NAME (PCP) Patient Instructions: Abdominal Pain (Nonspecific) Additional Instructions: Please follow up with your GI doctor for further workup. If symptoms get worse please come back to ER. Scripts Ondansetron Hcl (ZOFRAN) 4 Mg Tablet 1 TAB PO PRN Q6-8HRS PRN for NAUSEA, #14 TAB 0 Refills Prov: QUINTIN GUZMAN APRN 10/03/18 Attending Signature Attending Signature I have reviewed the PA/RECORDS CLERK's note and plan of care. I was available for consultation as needed during the patient's visit in the emergency department. I agree with the clinical impression, plan, and disposition. (QUINTIN CURTIS DO) Problem Qualifiers Primary Impression: Abdominal pain Abdominal location: generalized Qualified Codes: R10.84 - Generalized abdominal pain QUINTIN GUZMAN APRN Oct 02, 2018 23:14 QUINTIN CURTIS DO Oct 03, 2018 06:05
[2018-10-02] MEDS ORDERED: CONTRAST GIVEN. MC PRN (23:15)
[2018-10-02] MEDS ORDERED: IOHEXOL 300 MG/ML 100ML VIAL. IV ONE (23:30)
[2018-10-02] MEDS ORDERED: IOHEXOL 240 MG/ML 50ML VIAL. PO ONE (23:30)
[2018-10-03 00:53] VITALS: BP 120/73
[2018-10-03] MEDS ORDERED: MORPHINE SULFATE 4 MG/ML VIAL. IV ONE (01:00)
[2018-10-03] MEDS ORDERED: PROCHLORPERAZINE 10 MG/2 ML VIAL. IV ONE (01:00)
[2018-10-03] MEDS ORDERED: ONDA4TAB7 PO (01:10)
--- NOTE | 2018-10-03 01:10 | RAD ---
PQRS Compliance statement: One or more of the following individualized dose reduction techniques were utilized for this examination: 1. Automated exposure control. 2. Adjustment of the mA and/or kV according to patient size. 3. Use of iterative reconstruction technique. Indication:ABD PAIN:OMNI 300, 75ML; OMNI 240, 30ML TECHNIQUE: CT abdomen and pelvis with IV contrast with multiplanar reformats. COMPARISON: 09/27/2018 FINDINGS: Heart is normal in size. No pericardial or pleural effusion. Clear lung bases. Liver, spleen, pancreas, adrenals and kidneys are within normal limits. No free pelvic fluid or ascites. No enlarged retroperitoneal or pelvic adenopathy. The prostate and seminal vesicles show no large mass. No bowel obstruction. Appendix is not seen. No right lower quadrant inflammatory changes. Urinary bladder is within normal limits. No pneumoperitoneum. No suspicious bony lesion. Couple of sclerotic foci in the right femur and right iliac bone most likely bony island. IMPRESSION: 1. No bowel obstruction. 2. No nephrolithiasis or hydronephrosis. Electronically signed by: Gonzalez Harmon DO (10/03/2018 1:07 AM) [facility]
[2018-10-03 01:25] LABS: BILIRUBIN,URINE NEGATIVE (NEG); CLARITY,URINE CLEAR; COLOR,URINE YELLOW; NITRITE,URINE NEGATIVE (NEG); PROTEIN,URINE NEGATIVE (NEG-TRACE); UROBILINOGEN,URINE 0.2 mg/dL (0.2 mg/dL)
[2018-10-03 01:33] LABS: BACTERIA,URINE 0 /HPF (0-FEW); RBC,URINE 0 /HPF (0-2); WBC,URINE 0 /HPF (0-4)
== END 2018-10-03 01:46 | disposition home or self-care (01) ==
LOC: ER 21:47
DX: R10.84 Generalized abdominal pain (principal); R11.2 Nausea with vomiting, unspecified; I10 Essential (primary) hypertension; G89.29 Other chronic pain; Z90.49 Acquired absence of other specified parts of digestive tract
CPT/HCPCS: 36415; 74177; 80053; 81001; 83690; 85025; 96361; 96374; 96375; 99285; J0780; J2270; J2405; J7030; Q9966; Q9967

== ENCOUNTER 2018-11-07 22:22 | Emergency (ER) | payer OTHER ==
[~2018-11-07] VITALS: Ht 172.7 cm; Wt 104.3 kg
[2018-11-07 22:48] LABS: BASO % 0 % (0-3); EOS % 0 % (0-3); HEMATOCRIT 38.1 % (39.0-53.0); HEMOGLOBIN 12.5 g/dL (13.0-17.5); LYMPH # 2.8 x10^3/uL (1.0-4.8); LYMPH % 26 % (24-48); MEAN CORPUSCULAR HEMOGLOBIN 24 pg (25-35); MEAN CORPUSCULAR HGB CONC 33 g/dL (31-37); MEAN CORPUSCULAR VOLUME 74 fL (79-100); MONO # 0.9 x10^3/uL (0.0-1.1); MONO % 8 % (0-9); NEUT % 65 % (31-73); PLATELET COUNT 309 x10^3/uL (140-400); RED BLOOD COUNT 5.12 x10^6/uL (4.30-5.70); RED CELL DISTRIBUTION WIDTH 15.2 % (11.5-14.5); WHITE BLOOD COUNT 10.7 x10^3/uL (4.0-11.0)
[2018-11-07 22:57] LABS: CALCIUM 9.6 mg/dL (8.5-10.1); GFR 104.1; POTASSIUM 4.3 mmol/L (3.5-5.1)
[2018-11-07] MEDS ORDERED: LIDO:MAALOX 1:1 20 ML SINGLE DOSE. SWSW ONE (23:00)
[2018-11-07] MEDS ORDERED: oxyCODONE/APAP 5/325 1 TAB TABLET PO ONE (23:00)
[2018-11-07] MEDS ORDERED: KETAMINE HCL IN NACL, ISO-OSM 50 MG/5 ML SYRINGE IV ONE (23:00)
[2018-11-07 23:02] LABS: ALBUMIN 4.1 g/dL (3.4-5.0); ALBUMIN/GLOBULIN RATIO 1.1 (1.0-1.7); TOTAL BILIRUBIN 0.2 mg/dL (0.2-1.0)
[2018-11-07 23:31] VITALS: BP 152/58
[2018-11-07] MEDS ORDERED: OXYC5CAP PO (23:31)
--- NOTE | 2018-11-08 00:09 | PHYS DOC ---
Past Medical History Past Medical History: Hypertension, Pancreatitis, Other Additional Past Medical Histor: chronic pancreatitis Past Surgical History: Cholecystectomy Alcohol Use: None Drug Use: None Adult General Chief Complaint Chief Complaint: ABDOMINAL PAIN HPI HPI Patient is a 33 year old male who is presenting with abdominal pain has had this for 3 years he said he just couldn't take it anymore tonight. He did have a nerve block about 10 days ago at he said he really didn't help at all. He is due to follow up with GI in the next week for further instructions she does have a history of chronic pancreatitis he has had his gallbladder taken out. He does take Tylenol regularly to treat the pain he does not have any other pain medication at home. No fever positive nausea pain is dull nonradiating epigastric in nature worse with eating Review of Systems Review of Systems Constitutional: Denies fever or chills [] Eyes: Denies change in visual acuity, redness, or eye pain [] HENT: Denies nasal congestion or sore throat [] Musculoskeletal: Denies back pain or joint pain [] Integument: Denies rash or skin lesions [] Neurologic: Denies headache, focal weakness or sensory changes [] Endocrine: Denies polyuria or polydipsia [] All other systems were reviewed and found to be within normal limits, except as documented in this note. Current Medications Current Medications Current Medications Medications (Trade) Dose Ordered Sig/Salvador Start Time Stop Time Status Last Admin Dose Admin Ketamine HCl (Ketamine) 15 mg 1X ONCE 11/07/18 23:00 11/07/18 23:01 DC 11/07/18 23:10 15 MG Multi-Ingredient Mouthwash/Gargle (Gi Cocktail) 20 ml 1X ONCE 11/07/18 23:00 11/07/18 23:01 DC 11/07/18 23:10 20 ML Oxycodone/ Acetaminophen (Percocet 5/325) 2 tab 1X ONCE 11/07/18 23:00 11/07/18 23:01 DC 11/07/18 23:09 2 TAB Allergies Allergies Allergies Coded Allergies Type Severity Reaction Last Updated Verified No Known Drug Allergies 12/24/15 No Physical Exam Physical Exam Constitutional: Well developed, well nourished, no acute distress, non-toxic appearance. [] HENT: Normocephalic, atraumatic, bilateral external ears normal, oropharynx moist, no oral exudates, nose normal. [] Eyes: PERRLA, EOMI, conjunctiva normal, no discharge. [] Neck: Normal range of motion, no tenderness, supple, no stridor. [] Cardiovascular:Heart rate regular rhythm, no murmur [] Lungs & Thorax: Bilateral breath sounds clear to auscultation [] Abdomen: Bowel sounds normal, soft, epigastric tenderness, no masses, no pulsatile masses. [] Skin: Warm, dry, no erythema, no rash. [] Back: No tenderness, no CVA tenderness. [] Extremities: No tenderness, no cyanosis, no clubbing, ROM intact, no edema. [] Neurologic: Alert and oriented X 3, normal motor function, normal sensory function, no focal deficits noted. [] Psychologic: Affect normal, judgement normal, mood normal. [] Current Patient Data Vital Signs Vital Signs Date Time Temp Pulse Resp B/P (MAP) Pulse Ox O2 Delivery O2 Flow Rate FiO2 11/07/18 23:09 20 99 Room Air Lab Values Laboratory Tests Test 11/07/18 22:35 White Blood Count 10.7 x10^3/uL (4.0-11.0) Red Blood Count 5.12 x10^6/uL (4.30-5.70) Hemoglobin 12.5 g/dL (13.0-17.5) L Hematocrit 38.1 % (39.0-53.0) L Mean Corpuscular Volume 74 fL (79-100) L Mean Corpuscular Hemoglobin 24 pg (25-35) L Mean Corpuscular Hemoglobin Concent 33 g/dL (31-37) Red Cell Distribution Width 15.2 % (11.5-14.5) H Platelet Count 309 x10^3/uL (140-400) Neutrophils (%) (Auto) 65 % (31-73) Lymphocytes (%) (Auto) 26 % (24-48) Monocytes (%) (Auto) 8 % (0-9) Eosinophils (%) (Auto) 0 % (0-3) Basophils (%) (Auto) 0 % (0-3) Neutrophils # (Auto) 7.0 x10^3uL (1.8-7.7) Lymphocytes # (Auto) 2.8 x10^3/uL (1.0-4.8) Monocytes # (Auto) 0.9 x10^3/uL (0.0-1.1) Eosinophils # (Auto) 0.0 x10^3/uL (0.0-0.7) Basophils # (Auto) 0.0 x10^3/uL (0.0-0.2) Sodium Level 142 mmol/L (136-145) Potassium Level 4.3 mmol/L (3.5-5.1) Chloride Level 104 mmol/L (98-107) Carbon Dioxide Level 25 mmol/L (21-32) Anion Gap 13 (6-14) Blood Urea Nitrogen 13 mg/dL (8-26) Creatinine 1.0 mg/dL (0.7-1.3) Estimated GFR (Cockcroft-Gault) 104.1 BUN/Creatinine Ratio 13 (6-20) Glucose Level 120 mg/dL (70-99) H Calcium Level 9.6 mg/dL (8.5-10.1) Total Bilirubin 0.2 mg/dL (0.2-1.0) Aspartate Amino Transferase (AST) 56 U/L (15-37) H Alanine Aminotransferase (ALT) 72 U/L (16-63) H Alkaline Phosphatase 99 U/L (46-116) Total Protein 8.0 g/dL (6.4-8.2) Albumin 4.1 g/dL (3.4-5.0) Albumin/Globulin Ratio 1.1 (1.0-1.7) Lipase 173 U/L (73-393) Laboratory Tests 11/07/18 22:35 Laboratory Tests 11/07/18 22:35 EKG EKG [] Radiology/Procedures Radiology/Procedures [] Course & Med Decision Making Course & Med Decision Making Pertinent Labs and Imaging studies reviewed. (See chart for details) []33-year-old male chronic pancreatitis chronic epigastric abdominal pain and multiple ER visits for same [address] CT scans in the last couple of months at this facility alone LFTs were borderline mildly elevated he does take Tylenol regularly I recommended he stop this I did provide him with a few days worth of a narcotic Tylenol 3 pain prescription and recommended that he take that and follow up with GI next week for recheck of his LFTs. I don't think he needs any imaging tonight he has had his gallbladder taken out he has had recent CT scans that were negative acute. Did receive some ketamine as well as oral narcotic in the emergency room and she felt somewhat better after that Dragon Disclaimer Larry Disclaimer This electronic medical record was generated, in whole or in part, using a voice recognition dictation system. Departure Departure Impression: Primary Impression: Abdominal pain Disposition: HOME, SELF-CARE Referrals: UNKNOWN PCP NAME (PCP) Patient Instructions: Abdominal Pain (Nonspecific) Scripts Oxycodone Hcl (OXYCODONE HCL) 5 Mg Capsule 5 MG PO PRN Q6HRS PRN for PAIN, #15 TAB 0 Refills Prov: JOSE PANIAGUA MD 11/07/18 JOSE PANIAGUA MD Nov 08, 2018 00:08
== END 2018-11-07 23:55 | disposition home or self-care (01) ==
LOC: ER 22:22
DX: R10.13 Epigastric pain (principal); I10 Essential (primary) hypertension; Z90.49 Acquired absence of other specified parts of digestive tract; Z87.19 Personal history of other diseases of the digestive system
CPT/HCPCS: 36415; 80053; 83690; 85025; 96374; 99284-25

== ENCOUNTER 2018-11-21 22:16 | Emergency (ER) | payer MEDICAID, OTHER ==
[~2018-11-21] VITALS: Ht 172.7 cm; Wt 99.8 kg
[~2018-11-21 22:16] MED LIST changes: +OXYC5CAP PO
[2018-11-22] MEDS ORDERED: KETOROLAC 30 MG/ML VIAL. IV ONE
[2018-11-22] MEDS ORDERED: ONDANSETRON PF 4 MG/2 ML VIAL. IV ONE
--- NOTE | 2018-11-22 00:01 | PHYS DOC ---
Past Medical History Past Medical History: Hypertension, Pancreatitis, Other Additional Past Medical Histor: chronic pancreatitis (SHAY FORTUNE APRN) Past Surgical History: Cholecystectomy (SHAY FORTUNE APRN) Alcohol Use: None Drug Use: None (SHAY FORTUNE APRN) Adult General Chief Complaint Chief Complaint: ABDOMINAL PAIN HPI HPI Patient is a 33 year old [male] who presents with [chronic pancreatitis. States he has been dealing with this for the past 3 years. States he had a history of prior alcohol abuse, and has been dealing with nausea and vomiting since that time. States he had been taking a family member's pain medications earlier today, has been taking someone's Zofran for nausea. reports he had been seen at [facility] yesterday for this same thing. States he just goes from ER to ER dealing with his pain. Reports he had not vomited today, states his pain is similar to what he normally feels. ] (SHAY FORTUNE APRN) Review of Systems Review of Systems Constitutional: Denies fever or chills [] Eyes: Denies change in visual acuity, redness, or eye pain [] HENT: Denies nasal congestion or sore throat [] Respiratory: Denies cough or shortness of breath [] Cardiovascular: No additional information not addressed in HPI [] GI: Reports abdominal pain, nausea, no vomiting, bloody stools or diarrhea [] : Denies dysuria or hematuria [] Musculoskeletal: Denies back pain or joint pain [] Integument: Denies rash or skin lesions [] Neurologic: Denies headache, focal weakness or sensory changes [] Endocrine: Denies polyuria or polydipsia [] All other systems were reviewed and found to be within normal limits, except as documented in this note. (SHAY FORTUNE APRN) Current Medications Current Medications Current Medications Medications (Trade) Dose Ordered Sig/Salvador Start Time Stop Time Status Last Admin Dose Admin Hyoscyamine (Anaspaz) 0.125 mg 1X ONCE 11/22/18 02:00 11/22/18 02:23 DC 11/22/18 02:07 0.125 MG Ketorolac Tromethamine (Toradol 30mg Vial) 30 mg 1X ONCE 11/22/18 00:00 11/22/18 00:01 DC 11/22/18 00:31 30 MG Ondansetron HCl (Zofran) 4 mg 1X ONCE 11/22/18 00:00 11/22/18 00:01 DC 11/22/18 00:30 4 MG Sodium Chloride 1,000 ml @ 1,000 mls/hr 1X ONCE 11/22/18 00:30 11/22/18 01:29 DC 11/22/18 00:34 1,000 MLS/HR (QUINTIN CURTIS DO) Allergies Allergies Allergies Coded Allergies Type Severity Reaction Last Updated Verified No Known Drug Allergies 12/24/15 No (QUINTIN CURTIS DO) Physical Exam Physical Exam Constitutional: Well developed, well nourished, no acute distress, non-toxic appearance. [] HENT: Normocephalic, atraumatic, bilateral external ears normal, oropharynx mois t, no oral exudates, nose normal. [] Eyes: PERRLA, EOMI, conjunctiva normal, no discharge. [] Neck: Normal range of motion, no tenderness, supple, no stridor. [] Cardiovascular:Heart rate regular rhythm, no murmur [] Lungs & Thorax: Bilateral breath sounds clear to auscultation [] Abdomen: Bowel sounds normal, soft, no tenderness, no masses, no pulsatile masses. [] Skin: Warm, dry, no erythema, no rash. [] Back: No tenderness, no CVA tenderness. [] Extremities: No tenderness, no cyanosis, no clubbing, ROM intact, no edema. [] Neurologic: Alert and oriented X 3, normal motor function, normal sensory function, no focal deficits noted. [] Psychologic: Affect normal, judgement normal, mood normal. [] (SHAY FORTUNE APRN) Current Patient Data Vital Signs Vital Signs Date Time Temp Pulse Resp B/P (MAP) Pulse Ox O2 Delivery O2 Flow Rate FiO2 11/22/18 01:48 79 14 131/84 (100) 99 Room Air 11/21/18 22:19 89.6 89.6 (QUINTIN CURTIS DO) Lab Values Laboratory Tests Test 11/22/18 00:05 11/22/18 00:30 White Blood Count 6.5 x10^3/uL (4.0-11.0) Red Blood Count 5.32 x10^6/uL (4.30-5.70) Hemoglobin 12.9 g/dL (13.0-17.5) L Hematocrit 39.8 % (39.0-53.0) Mean Corpuscular Volume 75 fL (79-100) L Mean Corpuscular Hemoglobin 24 pg (25-35) L Mean Corpuscular Hemoglobin Concent 32 g/dL (31-37) Red Cell Distribution Width 14.8 % (11.5-14.5) H Platelet Count 286 x10^3/uL (140-400) Neutrophils (%) (Auto) 50 % (31-73) Lymphocytes (%) (Auto) 41 % (24-48) Monocytes (%) (Auto) 7 % (0-9) Eosinophils (%) (Auto) 1 % (0-3) Basophils (%) (Auto) 1 % (0-3) Neutrophils # (Auto) 3.3 x10^3uL (1.8-7.7) Lymphocytes # (Auto) 2.6 x10^3/uL (1.0-4.8) Monocytes # (Auto) 0.5 x10^3/uL (0.0-1.1) Eosinophils # (Auto) 0.1 x10^3/uL (0.0-0.7) Basophils # (Auto) 0.0 x10^3/uL (0.0-0.2) Sodium Level 138 mmol/L (136-145) Potassium Level 4.2 mmol/L (3.5-5.1) Chloride Level 103 mmol/L (98-107) Carbon Dioxide Level 26 mmol/L (21-32) Anion Gap 9 (6-14) Blood Urea Nitrogen 9 mg/dL (8-26) Creatinine 0.9 mg/dL (0.7-1.3) Estimated GFR (Cockcroft-Gault) 117.6 BUN/Creatinine Ratio 10 (6-20) Glucose Level 105 mg/dL (70-99) H Calcium Level 9.5 mg/dL (8.5-10.1) Total Bilirubin 0.2 mg/dL (0.2-1.0) Aspartate Amino Transferase (AST) 18 U/L (15-37) Alanine Aminotransferase (ALT) 98 U/L (16-63) H Alkaline Phosphatase 119 U/L (46-116) H Total Protein 7.7 g/dL (6.4-8.2) Albumin 3.7 g/dL (3.4-5.0) Albumin/Globulin Ratio 0.9 (1.0-1.7) L Amylase Level 47 U/L (25-115) Lipase 134 U/L (73-393) Laboratory Tests 11/22/18 00:05 Laboratory Tests 11/22/18 00:30 (QUINTIN CURTIS DO) Lab Values Laboratory Tests Test 11/22/18 00:05 White Blood Count 6.5 x10^3/uL (4.0-11.0) Red Blood Count 5.32 x10^6/uL (4.30-5.70) Hemoglobin 12.9 g/dL (13.0-17.5) L Hematocrit 39.8 % (39.0-53.0) Mean Corpuscular Volume 75 fL (79-100) L Mean Corpuscular Hemoglobin 24 pg (25-35) L Mean Corpuscular Hemoglobin Concent 32 g/dL (31-37) Red Cell Distribution Width 14.8 % (11.5-14.5) H Platelet Count 286 x10^3/uL (140-400) Neutrophils (%) (Auto) 50 % (31-73) Lymphocytes (%) (Auto) 41 % (24-48) Monocytes (%) (Auto) 7 % (0-9) Eosinophils (%) (Auto) 1 % (0-3) Basophils (%) (Auto) 1 % (0-3) Neutrophils # (Auto) 3.3 x10^3uL (1.8-7.7) Lymphocytes # (Auto) 2.6 x10^3/uL (1.0-4.8) Monocytes # (Auto) 0.5 x10^3/uL (0.0-1.1) Eosinophils # (Auto) 0.1 x10^3/uL (0.0-0.7) Basophils # (Auto) 0.0 x10^3/uL (0.0-0.2) Laboratory Tests 11/22/18 00:05 (SHAY FORTUNE APRN) EKG EKG [] (SHAY FORTUNE APRN) Radiology/Procedures Radiology/Procedures [] (SHAY FORTUNE APRN) Course & Med Decision Making Course & Med Decision Making Pertinent Labs and Imaging studies reviewed. (See chart for details) [Reviewed patient [employer] report, with multiple providers, multiple sites, and multiple prescriptions over the past year, last filled 11/13, 11/11, 11/[address] Curtis, will assume care, awaiting CMP/Amylase/Lipase and fluids.] (SHAY FORTUNE APRN) Course & Med Decision Making Sign out provided from Shay FOLEY for patient with chronic abdominal pain, pending laboratory data. [facility] review noted recent CT imaging from 10/03/18 without acute process. Labs reviewed. H/H baseline. Lipase/amylase WNL. Patient stable for discharge home with outpatient follow-up with PCP/GI. GI referral provided. (QUINTIN CURTIS DO) Dragon Disclaimer Dragon Disclaimer This electronic medical record was generated, in whole or in part, using a voice recognition dictation system. (SHAY FORTUNE APRN) Departure Departure Impression: Primary Impression: Chronic abdominal pain Disposition: HOME, SELF-CARE Condition: STABLE Referrals: UNKNOWN PCP NAME (PCP) DHRUV FERNANDES MD, SCOTT S MD Patient Instructions: Abdominal Pain (Nonspecific), Chronic Pain Management Scripts Famotidine (PEPCID) 20 Mg Tablet 20 MG PO BID, #20 TAB Prov: QUINTIN CURTIS DO 11/22/18 Ondansetron (ONDANSETRON ODT) 4 Mg Tab.rapdis 1 TAB PO PRN Q6-8HRS PRN for NAUSEA, #16 TAB Prov: QUINTIN CURTIS DO 11/22/18 Hyoscyamine Sulfate (LEVSIN-SL) 0.125 Mg Tab.subl 1-2 TAB SL PRN Q4HRS PRN for PAIN, #20 TAB Prov: QUINTIN CURTIS DO 11/22/18 Attending Signature Attending Signature I have reviewed the PA/SUPERVISOR RECLAMATION's note and plan of care. I was available for consultation as needed during the patient's visit in the emergency department. I agree with the clinical impression, plan, and disposition. (QUINTIN CURTIS DO) SHAY FORTUNE APRN Nov 22, 2018 00:01 QUINTIN CURTIS DO Nov 22, 2018 02:02
[2018-11-22 00:13] LABS: BASO % 1 % (0-3); EOS # 0.1 x10^3/uL (0.0-0.7); EOS % 1 % (0-3); HEMATOCRIT 39.8 % (39.0-53.0); HEMOGLOBIN 12.9 g/dL (13.0-17.5); LYMPH # 2.6 x10^3/uL (1.0-4.8); LYMPH % 41 % (24-48); MEAN CORPUSCULAR HEMOGLOBIN 24 pg (25-35); MEAN CORPUSCULAR HGB CONC 32 g/dL (31-37); MEAN CORPUSCULAR VOLUME 75 fL (79-100); MONO # 0.5 x10^3/uL (0.0-1.1); MONO % 7 % (0-9); NEUT # 3.3 x10^3uL (1.8-7.7); NEUT % 50 % (31-73); PLATELET COUNT 286 x10^3/uL (140-400); RED BLOOD COUNT 5.32 x10^6/uL (4.30-5.70); RED CELL DISTRIBUTION WIDTH 14.8 % (11.5-14.5); WHITE BLOOD COUNT 6.5 x10^3/uL (4.0-11.0)
[2018-11-22] MEDS ORDERED: IV NORMAL SALINE 1000ML BAG 1,000 ML IV ONE (00:30)
[2018-11-22 00:59] LABS: CALCIUM 9.5 mg/dL (8.5-10.1); CREATININE 0.9 mg/dL (0.7-1.3); GFR 117.6; POTASSIUM 4.2 mmol/L (3.5-5.1)
[2018-11-22 01:07] LABS: ALBUMIN 3.7 g/dL (3.4-5.0); ALBUMIN/GLOBULIN RATIO 0.9 (1.0-1.7); TOTAL BILIRUBIN 0.2 mg/dL (0.2-1.0); TOTAL PROTEIN 7.7 g/dL (6.4-8.2)
[2018-11-22 01:48] VITALS: BP 131/84
[2018-11-22] MEDS ORDERED: HYOSCYAMINE 0.125 MG TAB.RAPDIS PO ONE (02:00)
[2018-11-22] MEDS ORDERED: FAMO-63 PO (02:01)
[2018-11-22] MEDS ORDERED: ONDA4TAB12 PO (02:01)
[2018-11-22] MEDS ORDERED: HYOS0.1265 SL (02:01)
== END 2018-11-22 02:15 | disposition home or self-care (01) ==
LOC: ER 22:16
DX: G89.29 Other chronic pain (principal); R10.9 Unspecified abdominal pain; R11.2 Nausea with vomiting, unspecified; I10 Essential (primary) hypertension; Z90.49 Acquired absence of other specified parts of digestive tract; Z87.19 Personal history of other diseases of the digestive system
CPT/HCPCS: 36415; 80053; 82150; 83690; 85025; 96361; 96374; 96375; 99284; J1885; J2405; J7030

== ENCOUNTER 2018-11-30 07:33 | Emergency (ER) | payer MEDICAID ==
[~2018-11-30] VITALS: Ht 172.7 cm; Wt 104.3 kg
[~2018-11-30 07:33] MED LIST changes: +FAMO-63 PO; +HYOS0.1265 SL; +ONDA4TAB12 PO
--- NOTE | 2018-11-30 08:16 | RAD ---
CHEST AP ONLY Clinical indications: Chest pain left side starting today. COMPARISON: December 16, 2013. Findings: No acute lung infiltrate or pleural effusion or pulmonary edema or lung mass or pneumothorax is seen. The heart size, pulmonary vasculature, mediastinum and both josefina are unremarkable. Impression: No acute radiographic abnormality is seen. Electronically signed by: Alex Urbina MD (11/30/2018 8:13 AM) [facility]
[2018-11-30 08:18] LABS: BASO # 0.1 x10^3/uL (0.0-0.2); BASO % 1 % (0-3); EOS # 0.1 x10^3/uL (0.0-0.7); EOS % 1 % (0-3); HEMATOCRIT 39.7 % (39.0-53.0); HEMOGLOBIN 12.9 g/dL (13.0-17.5); LYMPH # 2.8 x10^3/uL (1.0-4.8); LYMPH % 40 % (24-48); MEAN CORPUSCULAR HEMOGLOBIN 24 pg (25-35); MEAN CORPUSCULAR HGB CONC 33 g/dL (31-37); MEAN CORPUSCULAR VOLUME 74 fL (79-100); MONO # 0.5 x10^3/uL (0.0-1.1); MONO % 8 % (0-9); NEUT # 3.4 x10^3uL (1.8-7.7); NEUT % 50 % (31-73); PLATELET COUNT 277 x10^3/uL (140-400); RED BLOOD COUNT 5.36 x10^6/uL (4.30-5.70); RED CELL DISTRIBUTION WIDTH 14.1 % (11.5-14.5); WHITE BLOOD COUNT 6.9 x10^3/uL (4.0-11.0)
--- NOTE | 2018-11-30 08:36 | EKG ---
[facility] [address] [place] [address] Test Date: 2018-11-30 Test Time: 07:42:22 Pat Name: BRANDO STANLEY Department: Room: Gender: M Station Supervisor: : 1985 Requested By: ENEDELIA BARRAGAN Order Number: [id number] Reading MD: Measurements Intervals [place] Rate: 115 P: 50 [place]: 156 QRS: 75 QRSD: 90 T: -15 QT: 330 QTc: 458 Interpretive Statements SINUS TACHYCARDIA QRS(T) CONTOUR ABNORMALITY CONSIDER INFERIOR MYOCARDIAL DAMAGE POSSIBLY ABNORMAL ECG RI6.01 Unconfirmed report No previous ECG available for comparison
[2018-11-30 08:38] LABS: ALBUMIN 3.7 g/dL (3.4-5.0); ALBUMIN/GLOBULIN RATIO 0.9 (1.0-1.7); CALCIUM 9.3 mg/dL (8.5-10.1); CREATININE 0.8 mg/dL (0.7-1.3); GFR 134.7; TOTAL BILIRUBIN 0.2 mg/dL (0.2-1.0); TOTAL PROTEIN 7.9 g/dL (6.4-8.2)
[2018-11-30 08:41] LABS: POTASSIUM 2.9 mmol/L (3.5-5.1)
[2018-11-30] MEDS ORDERED: POTASSIUM CHLORIDE 20 MEQ TABLET.ER. PO ONE (08:45)
[2018-11-30 09:43] VITALS: BP 152/85
--- NOTE | 2018-11-30 10:06 | PHYS DOC ---
Past Medical History Past Medical History: Hypertension, Pancreatitis, Other Additional Past Medical Histor: chronic pancreatitis Past Surgical History: Cholecystectomy Alcohol Use: None Drug Use: None Adult General Chief Complaint Chief Complaint: CHEST WALL PAIN HPI HPI Patient is a 33-year-old male presents with burning chest discomfort. He has a history of chronic pancreatitis secondary to excessive alcohol use. He states the pain started in the middle of the night and has been constant since that time. He says it's isolated to the left side of his chest in the upper chest. He denies any fever chills or sweats. He denies any hemoptysis. He denies cough congestion.[] Review of Systems Review of Systems Constitutional: Denies fever or chills [] Eyes: Denies change in visual acuity, redness, or eye pain [] HENT: Denies nasal congestion or sore throat [] Respiratory: Denies cough or shortness of breath [] Cardiovascular: No additional information not addressed in HPI [] GI: Denies abdominal pain, nausea, vomiting, bloody stools or diarrhea [] : Denies dysuria or hematuria [] Musculoskeletal: Denies back pain or joint pain [] Integument: Denies rash or skin lesions [] Neurologic: Denies headache, focal weakness or sensory changes [] Endocrine: Denies polyuria or polydipsia [] All other systems were reviewed and found to be within normal limits, except as documented in this note. Current Medications Current Medications Current Medications Medications (Trade) Dose Ordered Sig/Salvador Start Time Stop Time Status Last Admin Dose Admin Potassium Chloride (Klor-Con) 40 meq 1X ONCE 11/30/18 08:45 11/30/18 08:46 DC 11/30/18 08:59 40 MEQ Allergies Allergies Allergies Coded Allergies Type Severity Reaction Last Updated Verified No Known Drug Allergies 12/24/15 No Physical Exam Physical Exam Constitutional: Well developed, well nourished, no acute distress, non-toxic appearance. [] HENT: Normocephalic, atraumatic, bilateral external ears normal, oropharynx moist, no oral exudates, nose normal. [] Eyes: PERRLA, EOMI, conjunctiva normal, no discharge. [] Neck: Normal range of motion, no tenderness, supple, no stridor. [] Cardiovascular:Heart rate regular rhythm, no murmur [] Lungs & Thorax: Bilateral breath sounds clear to auscultation [] Abdomen: Bowel sounds normal, soft, no tenderness, no masses, no pulsatile masses. [] Skin: Warm, dry, no erythema, no rash. [] Back: No tenderness, no CVA tenderness. [] Extremities: No tenderness, no cyanosis, no clubbing, ROM intact, no edema. [] Neurologic: Alert and oriented X 3, normal motor function, normal sensory function, no focal deficits noted. [] Psychologic: Very anxious. [] Current Patient Data Vital Signs Vital Signs Date Time Temp Pulse Resp B/P (MAP) Pulse Ox O2 Delivery O2 Flow Rate FiO2 11/30/18 07:35 98.1 120 24 125/74 (91) 100 Room Air 98.1 Lab Values Laboratory Tests Test 11/30/18 08:10 White Blood Count 6.9 x10^3/uL (4.0-11.0) Red Blood Count 5.36 x10^6/uL (4.30-5.70) Hemoglobin 12.9 g/dL (13.0-17.5) L Hematocrit 39.7 % (39.0-53.0) Mean Corpuscular Volume 74 fL (79-100) L Mean Corpuscular Hemoglobin 24 pg (25-35) L Mean Corpuscular Hemoglobin Concent 33 g/dL (31-37) Red Cell Distribution Width 14.1 % (11.5-14.5) Platelet Count 277 x10^3/uL (140-400) Neutrophils (%) (Auto) 50 % (31-73) Lymphocytes (%) (Auto) 40 % (24-48) Monocytes (%) (Auto) 8 % (0-9) Eosinophils (%) (Auto) 1 % (0-3) Basophils (%) (Auto) 1 % (0-3) Neutrophils # (Auto) 3.4 x10^3uL (1.8-7.7) Lymphocytes # (Auto) 2.8 x10^3/uL (1.0-4.8) Monocytes # (Auto) 0.5 x10^3/uL (0.0-1.1) Eosinophils # (Auto) 0.1 x10^3/uL (0.0-0.7) Basophils # (Auto) 0.1 x10^3/uL (0.0-0.2) Sodium Level 136 mmol/L (136-145) Potassium Level 2.9 mmol/L (3.5-5.1) *L Chloride Level 100 mmol/L (98-107) Carbon Dioxide Level 23 mmol/L (21-32) Anion Gap 13 (6-14) Blood Urea Nitrogen 7 mg/dL (8-26) L Creatinine 0.8 mg/dL (0.7-1.3) Estimated GFR (Cockcroft-Gault) 134.7 BUN/Creatinine Ratio 9 (6-20) Glucose Level 127 mg/dL (70-99) H Calcium Level 9.3 mg/dL (8.5-10.1) Total Bilirubin 0.2 mg/dL (0.2-1.0) Aspartate Amino Transferase (AST) 49 U/L (15-37) H Alanine Aminotransferase (ALT) 69 U/L (16-63) H Alkaline Phosphatase 124 U/L (46-116) H Troponin I Quantitative < 0.017 ng/mL (0.000-0.055) Total Protein 7.9 g/dL (6.4-8.2) Albumin 3.7 g/dL (3.4-5.0) Albumin/Globulin Ratio 0.9 (1.0-1.7) L Lipase 92 U/L (73-393) Laboratory Tests 11/30/18 08:10 Laboratory Tests 11/30/18 08:10 EKG EKG [] Interpretation Time: EKG: Sinus tachycardia rate of 1:[address]-T changes Radiology/Procedures Radiology/Procedures [] Impressions: PROCEDURE: CHEST AP ONLY CHEST AP ONLY Clinical indications: Chest pain left side starting today. COMPARISON: December 16, 2013. Findings: No acute lung infiltrate or pleural effusion or pulmonary edema or lung mass or pneumothorax is seen. The heart size, pulmonary vasculature, mediastinum and both josefina are unremarkable. Impression: No acute radiographic abnormality is seen. Course & Med Decision Making Course & Med Decision Making Pertinent Labs and Imaging studies reviewed. (See chart for details) [ED course: Evaluation reveals a very anxious 33-year-old male. Laboratory studies were unremarkable. His EKG did not show any evidence of acute ischemia. I strongly suspect this chest pain is noncardiac in nature. I explained this to the patient offered him admission to the hospital for further evaluation but he declined.] Larry Disclaimer Dragon Disclaimer This electronic medical record was generated, in whole or in part, using a voice recognition dictation system. Departure Departure Impression: Primary Impression: Chest pain Disposition: HOME, SELF-CARE Condition: IMPROVED Referrals: PIEDAD MONTES APRN (PCP) Patient Instructions: Chest Pain (Nonspecific) Additional Instructions: Rest today. Return to the emergency department with any new or concerning symptoms Problem Qualifiers Primary Impression: Chest pain Chest pain type: unspecified Qualified Codes: R07.9 - Chest pain, unspecified ENEDELIA BARRAGAN DO Nov 30, 2018 10:06
== END 2018-11-30 10:20 | disposition home or self-care (01) ==
LOC: ER 07:33
DX: R07.89 Other chest pain (principal); I10 Essential (primary) hypertension; Z87.19 Personal history of other diseases of the digestive system
CPT/HCPCS: 36415; 71045; 80053; 83690; 84484; 85025; 93005; 99285-25

== ENCOUNTER 2018-12-17 06:09 | Emergency (ER) | payer MEDICAID ==
[~2018-12-17] VITALS: Ht 172.7 cm; Wt 104.3 kg
[2018-12-17] MEDS: NITROGLYCERIN SUBLINGUAL 0.4 MG BOTTLE OF 25. SL PRN ×2 (06:36→06:43)
[2018-12-17 06:43] LABS: BASO # 0.1 x10^3/uL (0.0-0.2); BASO % 1 % (0-3); EOS # 0.1 x10^3/uL (0.0-0.7); EOS % 2 % (0-3); HEMATOCRIT 41.3 % (39.0-53.0); HEMOGLOBIN 13.5 g/dL (13.0-17.5); LYMPH # 3.1 x10^3/uL (1.0-4.8); LYMPH % 44 % (24-48); MEAN CORPUSCULAR HEMOGLOBIN 24 pg (25-35); MEAN CORPUSCULAR HGB CONC 33 g/dL (31-37); MEAN CORPUSCULAR VOLUME 75 fL (79-100); MONO # 0.5 x10^3/uL (0.0-1.1); MONO % 7 % (0-9); NEUT # 3.3 x10^3/uL (1.8-7.7); NEUT % 46 % (31-73); PLATELET COUNT 287 x10^3/uL (140-400); RED BLOOD COUNT 5.52 x10^6/uL (4.30-5.70); RED CELL DISTRIBUTION WIDTH 14.5 % (11.5-14.5); WHITE BLOOD COUNT 7.1 x10^3/uL (4.0-11.0)
[2018-12-17 06:57] LABS: CALCIUM 9.8 mg/dL (8.5-10.1); GFR 104.1; POTASSIUM 3.8 mmol/L (3.5-5.1)
--- NOTE | 2018-12-17 06:59 | PHYS DOC ---
Past Medical History Past Medical History: Hypertension, Pancreatitis, Other Additional Past Medical Histor: chronic pancreatitis Past Surgical History: Cholecystectomy Smoking: Cigarettes Alcohol Use: Occasionally Drug Use: None Adult General Chief Complaint Chief Complaint: CHEST PAIN HPI HPI Patient is a 33 year old male who presents with complaining of chest pain. Monica ent states he woke up at 5:30 this morning because of substernal and left-sided sharp chest pain without radiation and rated his pain 9/10. Patient complaining of shortness of breath, dizziness and near syncope without nausea, palpitation, focal neuro deficit, fever and chills and cough. Patient states he took 325 mg of aspirin without change of his pain. Patient states the pain getting worse with taking deep breaths. Patient states he had this episode of left lower chest pain previously with diagnosis of musculoskeletal chest pain. Patient states he had history of chronic pancreatitis and used to drink alcohol heavily and had a glass of wine last night. Review of Systems Review of Systems Constitutional: Denies fever or chills [] Eyes: Denies change in visual acuity, redness, or eye pain [] HENT: Denies nasal congestion or sore throat [] Respiratory: Denies cough, reports shortness of breath [] Cardiovascular: No additional information not addressed in HPI [] GI: Denies abdominal pain, nausea, vomiting, bloody stools or diarrhea [] : Denies dysuria or hematuria [] Musculoskeletal: Denies back pain or joint pain [] Integument: Denies rash or skin lesions [] Neurologic: Denies headache, focal weakness or sensory changes [] Endocrine: Denies polyuria or polydipsia [] All other systems were reviewed and found to be within normal limits, except as documented in this note. Current Medications Current Medications Current Medications Medications (Trade) Dose Ordered Sig/Salvador Start Time Stop Time Status Last Admin Dose Admin Ketorolac Tromethamine (Toradol 30mg Vial) 30 mg 1X ONCE 12/17/18 07:30 12/17/18 07:31 DC Nitroglycerin (Nitrostat) 0.4 mg PRN Q5MIN PRN 12/17/18 06:30 12/18/18 06:29 12/17/18 06:43 0.4 MG Allergies Allergies Allergies Coded Allergies Type Severity Reaction Last Updated Verified No Known Drug Allergies 12/24/15 No Physical Exam Physical Exam Constitutional: Well developed, well nourished, mild distress, non-toxic appearance. [] HENT: Normocephalic, atraumatic, oropharynx moist. Eyes: PERRLA, EOMI, conjunctiva normal, no discharge. [] Neck: Normal range of motion, no tenderness, supple, no stridor. [] Cardiovascular:Heart rate regular rhythm, no murmur [] Lungs & Thorax: Bilateral breath sounds clear to auscultation , reproducible left chest wall pain[] Abdomen: Bowel sounds normal, soft, no tenderness, no masses, no pulsatile masses. [] Skin: Warm, dry, no erythema, no rash. [] Back: No tenderness, no CVA tenderness. [] Extremities: No tenderness, no cyanosis, no clubbing, ROM intact, no edema. [] Neurologic: Alert and oriented X 3, normal motor function, normal sensory function, no focal deficits noted. [] Psychologic: Affect anxious, judgement normal, mood normal. [] Current Patient Data Vital Signs Vital Signs Date Time Temp Pulse Resp B/P (MAP) Pulse Ox O2 Delivery O2 Flow Rate FiO2 12/17/18 06:43 98 143/69 12/17/18 06:10 97.7 18 95 Room Air 97.7 Lab Values Laboratory Tests Test 12/17/18 06:15 White Blood Count 7.1 x10^3/uL (4.0-11.0) Red Blood Count 5.52 x10^6/uL (4.30-5.70) Hemoglobin 13.5 g/dL (13.0-17.5) Hematocrit 41.3 % (39.0-53.0) Mean Corpuscular Volume 75 fL (79-100) L Mean Corpuscular Hemoglobin 24 pg (25-35) L Mean Corpuscular Hemoglobin Concent 33 g/dL (31-37) Red Cell Distribution Width 14.5 % (11.5-14.5) Platelet Count 287 x10^3/uL (140-400) Neutrophils (%) (Auto) 46 % (31-73) Lymphocytes (%) (Auto) 44 % (24-48) Monocytes (%) (Auto) 7 % (0-9) Eosinophils (%) (Auto) 2 % (0-3) Basophils (%) (Auto) 1 % (0-3) Neutrophils # (Auto) 3.3 x10^3/uL (1.8-7.7) Lymphocytes # (Auto) 3.1 x10^3/uL (1.0-4.8) Monocytes # (Auto) 0.5 x10^3/uL (0.0-1.1) Eosinophils # (Auto) 0.1 x10^3/uL (0.0-0.7) Basophils # (Auto) 0.1 x10^3/uL (0.0-0.2) Prothrombin Time 14.7 SEC (11.7-14.0) H Prothrombin Time INR 1.2 (0.8-1.1) H Sodium Level 137 mmol/L (136-145) Potassium Level 3.8 mmol/L (3.5-5.1) Chloride Level 100 mmol/L (98-107) Carbon Dioxide Level 25 mmol/L (21-32) Anion Gap 12 (6-14) Blood Urea Nitrogen 7 mg/dL (8-26) L Creatinine 1.0 mg/dL (0.7-1.3) Estimated GFR (Cockcroft-Gault) 104.1 BUN/Creatinine Ratio 7 (6-20) Glucose Level 150 mg/dL (70-99) H Calcium Level 9.8 mg/dL (8.5-10.1) Magnesium Level 2.0 mg/dL (1.8-2.4) Total Bilirubin 0.2 mg/dL (0.2-1.0) Aspartate Amino Transferase (AST) 22 U/L (15-37) Alanine Aminotransferase (ALT) 116 U/L (16-63) H Alkaline Phosphatase 147 U/L (46-116) H Creatine Kinase 257 U/L (39-308) Troponin I Quantitative < 0.017 ng/mL (0.000-0.055) MR-Peq-R-Type Natriuretic Peptide 6 pg/mL (0-124) Total Protein 8.5 g/dL (6.4-8.2) H Albumin 4.2 g/dL (3.4-5.0) Albumin/Globulin Ratio 1.0 (1.0-1.7) Lipase 110 U/L (73-393) Ethyl Alcohol Level < 10 mg/dL (0-10) Laboratory Tests 12/17/18 06:15 Laboratory Tests 12/17/18 06:15 EKG EKG EKG interpreted by me. EKG at 0615 showed normal sinus rhythm at rate of 98, left fourth axis, normal OR and QT intervals, no acute ST and T-wave abnormalities. Radiology/Procedures Radiology/Procedures Chest x-ray interpreted by me and did not show acute finding Course & Med Decision Making Course & Med Decision Making Pertinent Labs and Imaging studies reviewed. (See chart for details) Evaluation of patient in ER showed 33-year-old male patient with heart score of 3 with reproducible left chest wall pain and unremarkable labs and EKG and chest x-ray except for mild elevation of liver function test with history of chronic alcohol abuse. Patient felt better sublingual nitroglycerin and Toradol. Patient was advised to quit drinking alcohol and smoking cigarettes and follow up with his primary care physician for further evaluation for chest pain. Dragon Disclaimer Dragon Disclaimer This electronic medical record was generated, in whole or in part, using a voice recognition dictation system. Departure Departure Impression: Primary Impression: Musculoskeletal chest pain Additional Impressions: Elevated liver function tests Tobacco abuse Tobacco abuse counseling Anxiety Disposition: HOME, SELF-CARE (at 0737) Condition: IMPROVED Referrals: PIEDAD MONTES APRN (PCP) Patient Instructions: Alcohol Problems, Chest Wall Pain, Smoking Cessation, Tips For Success Additional Instructions: Follow-up with your primary care physician in 2-3 days Return to ER if not getting better Scripts Naproxen (NAPROSYN) 500 Mg Tablet 1 TAB PO BID for pain, #20 TAB Prov: GIOVANNA MCCORMICK MD 12/17/18 The HEART Score for CP Pts HEART Score for Chest Pain: HEART Score for Chest Pain Response (Comments) Value History Moderately Suspicious 1 ECG Nonspecific Repolarizatio 1 Age < 45 0 Risk Factors 1 or 2 Risk Factors 1 Troponin < Normal Limit 0 Total 3 Risk Factors: Risk Factors: DM, Current or recent (<one month) smoker, HTN, HLP, family history of CAD, obesity. Risk Scores: Score 0 - 3: 2.5% MACE over next 6 weeks - Discharge Home Score 4 - 6: 20.3% MACE over next 6 weeks - Admit for Clinical Observation Score 7 - 10: 72.7% MACE over next 6 weeks - Early Invasive Strategies Problem Qualifiers GIOVANNA MCCORMICK MD Dec 17, 2018 06:59
[2018-12-17 07:05] LABS: ALBUMIN 4.2 g/dL (3.4-5.0); TOTAL BILIRUBIN 0.2 mg/dL (0.2-1.0); TOTAL PROTEIN 8.5 g/dL (6.4-8.2)
[2018-12-17 07:11] LABS: PROTHROMBIN TIME PATIENT 14.7 SEC (11.7-14.0)
[2018-12-17] MEDS ORDERED: KETOROLAC 30 MG/ML VIAL. IV ONE (07:30)
[2018-12-17] MEDS ORDERED: NAPR-683 PO (07:40)
[2018-12-17 07:43] VITALS: BP 149/85
--- NOTE | 2018-12-17 08:47 | RAD ---
PORTABLE CHEST 1V Clinical indications: Nonradiating chest pain since this morning. COMPARISON: November 30, 2018. Findings: No acute lung infiltrate or pleural effusion or pulmonary edema or lung mass or pneumothorax is seen. The heart size, pulmonary vasculature, mediastinum and both josefina are unremarkable. Impression: No acute radiographic abnormality is seen. Electronically signed by: Alex Urbina MD (12/17/2018 8:44 AM) [facility]
--- NOTE | 2018-12-18 11:52 | EKG ---
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
== END 2018-12-17 07:50 | disposition home or self-care (01) ==
LOC: ER 06:09
DX: R07.2 Precordial pain (principal); F41.9 Anxiety disorder, unspecified; R79.89 Other specified abnormal findings of blood chemistry; F17.210 Nicotine dependence, cigarettes, uncomplicated; Z71.6 Tobacco abuse counseling; R06.02 Shortness of breath; R55 Syncope and collapse; R42 Dizziness and giddiness; I10 Essential (primary) hypertension; Z90.49 Acquired absence of other specified parts of digestive tract
CPT/HCPCS: 36415; 71045; 80053; 82550; 83690; 83735; 83880; 84484; 85025; 85610; 93005; 96374; 99285; G0480; J1885

== ENCOUNTER 2019-06-28 03:49 | Emergency (ER) | payer MEDICAID ==
[~2019-06-28] VITALS: Ht 172.7 cm; Wt 100.0 kg
[~2019-06-28 03:49] MED LIST changes: +LINE600T12 PO; +NAPR-683 PO; +OMEP40CA45 PO; -OMEP40CA5 PO
--- NOTE | 2019-06-28 04:03 | PHYS DOC ---
Past Medical History Past Medical History: Hypertension, Pancreatitis, Other Additional Past Medical Histor: chronic pancreatitis Past Surgical History: No Surgical History, Cholecystectomy Alcohol Use: Occasionally Drug Use: None Adult General Chief Complaint Chief Complaint: ABDOMINAL PAIN HPI HPI Patient is a 34 year old female who presents with complaint of epigastric abdominal pain that started 3 days ago. Patient has been having nausea and vomiting associated with the pain. He rates pain at a 10 out of 10. Patient does indicate that he has chronic pancreatitis. He was seen at [facility] last night and they prescribed hydrocodone but he states the hydrocodone has not been managing his pain. Patient states that nothing is improving his symptoms. He states that symptoms are worsened with eating or drinking.[] Review of Systems Review of Systems Constitutional: Denies fever or chills [] Respiratory: Denies cough or shortness of breath [] Cardiovascular: No additional information not addressed in HPI [] GI: Complains of abdominal pain with nausea and vomiting. Denies diarrhea [] Integument: Denies rash or skin lesions [] Neurologic: Denies headache, focal weakness or sensory changes [] All other systems were reviewed and found to be within normal limits, except as documented in this note. Current Medications Current Medications Current Medications Medications (Trade) Dose Ordered Sig/Salvador Start Time Stop Time Status Last Admin Dose Admin Fentanyl Citrate (Fentanyl 2ml Vial) 50 mcg PRN Q15MIN PRN 06/28/19 04:00 06/29/19 03:59 06/28/19 04:56 50 MCG Ondansetron HCl (Zofran) 4 mg 1X ONCE 06/28/19 04:30 06/28/19 04:31 DC 06/28/19 04:18 4 MG Sodium Chloride 1,000 ml @ 1,000 mls/hr Q1H 06/28/19 04:30 06/28/19 05:29 DC 06/28/19 04:18 1,000 MLS/HR Allergies Allergies Allergies Coded Allergies Type Severity Reaction Last Updated Verified No Known Drug Allergies 12/24/15 No Physical Exam Physical Exam Constitutional: Well developed, well nourished, no acute distress, non-toxic appearance. [] HENT: Normocephalic, atraumatic, bilateral external ears normal, oropharynx mois t, no oral exudates, nose normal. [] Eyes: PERRLA, EOMI, conjunctiva normal, no discharge. [] Neck: Normal range of motion, no tenderness, supple, no stridor. [] Cardiovascular: Tachycardic rate with regular rhythm[] Lungs & Thorax: Bilateral breath sounds clear to auscultation [] Abdomen: Bowel sounds normal, soft, no tenderness [] Skin: Warm, dry, no erythema, no rash. [] Extremities: No tenderness, no cyanosis, no clubbing, ROM intact, no edema. [] Neurologic: Alert and oriented X 3, no focal deficits noted. [] Current Patient Data Vital Signs Vital Signs Date Time Temp Pulse Resp B/P (MAP) Pulse Ox O2 Delivery O2 Flow Rate FiO2 06/28/19 04:56 18 100 06/28/19 04:19 Room Air 06/28/19 03:50 98.2 139 180/110 (133) 98.2 Lab Values Laboratory Tests Test 06/28/19 03:50 06/28/19 04:05 Urine Collection Type Unknown Urine Color Hellen Urine Clarity Clear Urine pH 5.5 Urine Specific [place] >=1.030 Urine Protein 30 mg/dL (NEG-TRACE) Urine Glucose (UA) Negative mg/dL (NEG) Urine Ketones (Stick) Negative mg/dL (NEG) Urine Blood Negative (NEG) Urine Nitrite Negative (NEG) Urine Bilirubin Small (NEG) Urine Urobilinogen Dipstick 1.0 mg/dL (0.2 mg/dL) Urine Leukocyte Esterase Negative (NEG) Urine RBC 1-2 /HPF (0-2) Urine WBC 1-4 /HPF (0-4) Urine Squamous Epithelial Cells Few /LPF Urine Bacteria Few /HPF (0-FEW) Urine Mucus Marked /LPF White Blood Count 6.8 x10^3/uL (4.0-11.0) Red Blood Count 5.04 x10^6/uL (4.30-5.70) Hemoglobin 12.0 g/dL (13.0-17.5) L Hematocrit 38.4 % (39.0-53.0) L Mean Corpuscular Volume 76 fL (79-100) L Mean Corpuscular Hemoglobin 24 pg (25-35) L Mean Corpuscular Hemoglobin Concent 31 g/dL (31-37) Red Cell Distribution Width 18.6 % (11.5-14.5) H Platelet Count 327 x10^3/uL (140-400) Neutrophils (%) (Auto) 53 % (31-73) Lymphocytes (%) (Auto) 37 % (24-48) Monocytes (%) (Auto) 8 % (0-9) Eosinophils (%) (Auto) 1 % (0-3) Basophils (%) (Auto) 1 % (0-3) Neutrophils # (Auto) 3.6 x10^3/uL (1.8-7.7) Lymphocytes # (Auto) 2.5 x10^3/uL (1.0-4.8) Monocytes # (Auto) 0.5 x10^3/uL (0.0-1.1) Eosinophils # (Auto) 0.1 x10^3/uL (0.0-0.7) Basophils # (Auto) 0.1 x10^3/uL (0.0-0.2) Sodium Level 140 mmol/L (136-145) Potassium Level 3.4 mmol/L (3.5-5.1) L Chloride Level 102 mmol/L (98-107) Carbon Dioxide Level 26 mmol/L (21-32) Anion Gap 12 (6-14) Blood Urea Nitrogen 6 mg/dL (8-26) L Creatinine 0.9 mg/dL (0.7-1.3) Estimated GFR (Cockcroft-Gault) 116.9 BUN/Creatinine Ratio 7 (6-20) Glucose Level 180 mg/dL (70-99) H Calcium Level 9.4 mg/dL (8.5-10.1) Total Bilirubin 0.3 mg/dL (0.2-1.0) Aspartate Amino Transferase (AST) 21 U/L (15-37) Alanine Aminotransferase (ALT) 22 U/L (16-63) Alkaline Phosphatase 89 U/L (46-116) Total Protein 7.6 g/dL (6.4-8.2) Albumin 4.1 g/dL (3.4-5.0) Albumin/Globulin Ratio 1.2 (1.0-1.7) Lipase 106 U/L (73-393) Laboratory Tests 06/28/19 04:05 Laboratory Tests 06/28/19 04:05 EKG EKG [] Radiology/Procedures Radiology/Procedures [] Course & Med Decision Making Course & Med Decision Making Pertinent Labs and Imaging studies reviewed. (See chart for details) [] Dragon Disclaimer Dragon Disclaimer This electronic medical record was generated, in whole or in part, using a voice recognition dictation system. Departure Departure Impression: Primary Impression: Chronic abdominal pain Disposition: 01 HOME, SELF-CARE Condition: STABLE Referrals: NO PCP (PCP) Patient Instructions: Abdominal Pain Scripts Ranitidine Hcl (ZANTAC) 150 Mg Tablet 150 MG PO BID, #30 TAB Prov: CHELSEY BENSON Jr. DO 06/28/19 Oxycodone/Apap 5-325 (PERCOCET 5-325 MG TABLET ) 1 Each Tablet 1 EACH PO Q6HRS PRN for PAIN, #12 TAB pain Prov: CHELSEY BENSON Jr. DO 06/28/19 CHELSEY BENSON Jr. DO Jun 28, 2019 04:03
[2019-06-28] MEDS: fentaNYL PF VIAL 100 MCG/2 ML VIAL IV PRN ×2 (04:19→04:56)
[2019-06-28 04:24] LABS: BASO # 0.1 x10^3/uL (0.0-0.2); BASO % 1 % (0-3); EOS # 0.1 x10^3/uL (0.0-0.7); EOS % 1 % (0-3); HEMATOCRIT 38.4 % (39.0-53.0); LYMPH # 2.5 x10^3/uL (1.0-4.8); LYMPH % 37 % (24-48); MEAN CORPUSCULAR HEMOGLOBIN 24 pg (25-35); MEAN CORPUSCULAR HGB CONC 31 g/dL (31-37); MEAN CORPUSCULAR VOLUME 76 fL (79-100); MONO # 0.5 x10^3/uL (0.0-1.1); MONO % 8 % (0-9); NEUT # 3.6 x10^3/uL (1.8-7.7); NEUT % 53 % (31-73); PLATELET COUNT 327 x10^3/uL (140-400); RED BLOOD COUNT 5.04 x10^6/uL (4.30-5.70); RED CELL DISTRIBUTION WIDTH 18.6 % (11.5-14.5); WHITE BLOOD COUNT 6.8 x10^3/uL (4.0-11.0)
[2019-06-28 04:26] LABS: BILIRUBIN,URINE SMALL (NEG); CLARITY,URINE CLEAR; COLOR,URINE AMBER; NITRITE,URINE NEGATIVE (NEG); PH,URINE 5.5; PROTEIN,URINE 30 mg/dL (NEG-TRACE)
[2019-06-28] MEDS ORDERED: ONDANSETRON PF 4 MG/2 ML VIAL. IV ONE (04:30)
[2019-06-28] MEDS ORDERED: IV NORMAL SALINE 1000ML BAG 1,000 ML IV SCH (04:30)
[2019-06-28 04:37] LABS: CALCIUM 9.4 mg/dL (8.5-10.1); CREATININE 0.9 mg/dL (0.7-1.3); GFR 116.9; POTASSIUM 3.4 mmol/L (3.5-5.1)
[2019-06-28 04:48] LABS: BACTERIA,URINE FEW /HPF (0-FEW); SQUAMOUS EPITHELIAL CELL,UR FEW /LPF
[2019-06-28 04:58] LABS: ALBUMIN 4.1 g/dL (3.4-5.0); ALBUMIN/GLOBULIN RATIO 1.2 (1.0-1.7); TOTAL BILIRUBIN 0.3 mg/dL (0.2-1.0); TOTAL PROTEIN 7.6 g/dL (6.4-8.2)
[2019-06-28] MEDS ORDERED: OXYC1TAB15 PO (05:40)
[2019-06-28] MEDS ORDERED: RANI-376 PO (05:40)
[2019-06-28 05:50] VITALS: BP 136/83
--- NOTE | 2019-06-28 07:07 | EKG ---
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
== END 2019-06-28 05:55 | disposition home or self-care (01) ==
LOC: ER 03:49
DX: G89.29 Other chronic pain (principal); R10.13 Epigastric pain; R11.2 Nausea with vomiting, unspecified; I10 Essential (primary) hypertension; Z90.49 Acquired absence of other specified parts of digestive tract
CPT/HCPCS: 36415; 80053; 81001; 83690; 85025; 93005; 96361; 96374; 96375; 96376; 99285; J2405; J3010; J7030

== ENCOUNTER 2019-07-13 05:01 | Emergency (ER) | payer MEDICAID ==
[~2019-07-13] VITALS: Ht 172.7 cm; Wt 100.0 kg
[~2019-07-13 05:01] MED LIST changes: +RANI-376 PO
--- NOTE | 2019-07-13 05:28 | PHYS DOC ---
Past Medical History Past Medical History: Hypertension, Pancreatitis, Other Additional Past Medical Histor: chronic pancreatitis (MARTIN JENSEN MD) Past Surgical History: No Surgical History, Cholecystectomy (MARTIN JENSEN MD) Smoking Status: Current Every Day Smoker Alcohol Use: Occasionally Drug Use: None (MARTIN JENSEN MD) The HEART Score for CP Pts HEART Score for Chest Pain: HEART Score for Chest Pain Response (Comments) Value History Slighlty/Non-Suspicious 0 ECG Nonspecific Repolarizatio 1 Age < 45 0 Risk Factors 1 or 2 Risk Factors 1 Troponin < Normal Limit 0 Total 2 Risk Factors: Risk Factors: DM, Current or recent (<one month) smoker, HTN, HLP, family history of CAD, obesity. Risk Scores: Score 0 - 3: 2.5% MACE over next 6 weeks - Discharge Home Score 4 - 6: 20.3% MACE over next 6 weeks - Admit for Clinical Observation Score 7 - 10: 72.7% MACE over next 6 weeks - Early Invasive Strategies (MARTIN JENSEN MD) Adult General Chief Complaint Chief Complaint: CHEST PAIN HPI HPI 34-year-old male presents to the emergency Department complaints of chest pressure. Patient states the pain is located in center aspect of his chest with radiation to his left arm. He describes shortness of breath, dizziness. Patient states the pain started around 4 AM. He denies any nausea or vomiting. States the pain is worse with deep breath, nothing makes it better. Patient does have a history of chronic hepatitis, hypertension, family history of coronary artery disease. Heart scores 2. (MARTIN JENSEN MD) Review of Systems Review of Systems Constitutional: Denies fever or chills [] Respiratory: Denies cough or shortness of breath [] Cardiovascular: No additional information not addressed in HPI [] GI: Denies abdominal pain, nausea, vomiting, bloody stools or diarrhea [] Musculoskeletal: Denies back pain or joint pain [] Integument: Denies rash or skin lesions [] Neurologic: Denies headache, focal weakness or sensory changes [] All other systems were reviewed and found to be within normal limits, except as documented in this note. (MARTIN JENSEN MD) Current Medications Current Medications Current Medications Medications (Trade) Dose Ordered Sig/Salvador Start Time Stop Time Status Last Admin Dose Admin Aspirin (Children'S Aspirin) 324 mg 1X ONCE 07/13/19 05:45 07/13/19 05:46 DC 07/13/19 05:38 324 MG Ketorolac Tromethamine (Toradol 30mg Vial) 30 mg 1X ONCE 07/13/19 06:30 07/13/19 06:31 DC 07/13/19 06:30 30 MG Magnesium Oxide (Magnesium Oxide) 400 mg 1X ONCE 07/13/19 06:30 07/13/19 06:31 DC 07/13/19 06:30 400 MG Nitroglycerin (Nitrostat) 0.4 mg PRN Q5MIN PRN 07/13/19 05:45 07/13/19 06:52 DC 07/13/19 06:05 0.4 MG Potassium Chloride (Klor-Con) 40 meq 1X ONCE 07/13/19 06:30 07/13/19 06:31 DC 07/13/19 06:30 40 MEQ (GIOVANNA MCCORMICK MD) Allergies Allergies Allergies Coded Allergies Type Severity Reaction Last Updated Verified No Known Drug Allergies 12/24/15 No (GIOVANNA MCCORMICK MD) Physical Exam Physical Exam Constitutional: Well developed, well nourished, mild distress, non-toxic appearance. [] HENT: Normocephalic, atraumatic, bilateral external ears normal, oropharynx moist, no oral exudates, nose normal. [] Eyes: PERRLA, EOMI, conjunctiva normal, no discharge. [] Cardiovascular:Heart rate regular rhythm, no murmur [] Lungs & Thorax: Bilateral breath sounds clear to auscultation [] Abdomen: Bowel sounds normal, soft, no tenderness, no masses, no pulsatile masses. [] Skin: Warm, dry, no erythema, no rash. [] Back: No tenderness, no CVA tenderness. [] Extremities: No tenderness, no edema. [] Neurologic: Alert and oriented X 3, no focal deficits noted. [] Psychologic: Affect normal, judgement normal, mood normal. [] (MARTIN JENSEN MD) Current Patient Data Vital Signs Vital Signs Date Time Temp Pulse Resp B/P (MAP) Pulse Ox O2 Delivery O2 Flow Rate FiO2 07/13/19 06:05 100 129/72 07/13/19 05:55 16 97 Room Air 07/13/19 05:01 98.6 98.6 (GIOVANNA MCCORMICK MD) Lab Values Laboratory Tests Test 07/13/19 05:20 White Blood Count 8.4 x10^3/uL (4.0-11.0) Red Blood Count 5.00 x10^6/uL (4.30-5.70) Hemoglobin 12.0 g/dL (13.0-17.5) L Hematocrit 38.4 % (39.0-53.0) L Mean Corpuscular Volume 77 fL (79-100) L Mean Corpuscular Hemoglobin 24 pg (25-35) L Mean Corpuscular Hemoglobin Concent 31 g/dL (31-37) Red Cell Distribution Width 16.8 % (11.5-14.5) H Platelet Count 318 x10^3/uL (140-400) Neutrophils (%) (Auto) 57 % (31-73) Lymphocytes (%) (Auto) 34 % (24-48) Monocytes (%) (Auto) 8 % (0-9) Eosinophils (%) (Auto) 1 % (0-3) Basophils (%) (Auto) 1 % (0-3) Neutrophils # (Auto) 4.8 x10^3/uL (1.8-7.7) Lymphocytes # (Auto) 2.8 x10^3/uL (1.0-4.8) Monocytes # (Auto) 0.7 x10^3/uL (0.0-1.1) Eosinophils # (Auto) 0.1 x10^3/uL (0.0-0.7) Basophils # (Auto) 0.1 x10^3/uL (0.0-0.2) D-Dimer (Alesia) < 0.27 ug/mlFEU Sodium Level 140 mmol/L (136-145) Potassium Level 3.2 mmol/L (3.5-5.1) L Chloride Level 101 mmol/L (98-107) Carbon Dioxide Level 28 mmol/L (21-32) Anion Gap 11 (6-14) Blood Urea Nitrogen 5 mg/dL (8-26) L Creatinine 0.8 mg/dL (0.7-1.3) Estimated GFR (Cockcroft-Gault) 133.9 BUN/Creatinine Ratio 6 (6-20) Glucose Level 169 mg/dL (70-99) H Calcium Level 8.9 mg/dL (8.5-10.1) Magnesium Level 1.7 mg/dL (1.8-2.4) L Total Bilirubin 0.1 mg/dL (0.2-1.0) L Aspartate Amino Transferase (AST) 19 U/L (15-37) Alanine Aminotransferase (ALT) 28 U/L (16-63) Alkaline Phosphatase 88 U/L (46-116) Troponin I Quantitative < 0.017 ng/mL (0.000-0.055) Total Protein 7.8 g/dL (6.4-8.2) Albumin 3.6 g/dL (3.4-5.0) Albumin/Globulin Ratio 0.9 (1.0-1.7) L Lipase 96 U/L (73-393) Laboratory Tests 07/13/19 05:20 Laboratory Tests 07/13/19 05:20 (GIOVANNA MCCORMICK MD) Lab Values Laboratory Tests Test 07/13/19 05:20 White Blood Count 8.4 x10^3/uL (4.0-11.0) Red Blood Count 5.00 x10^6/uL (4.30-5.70) Hemoglobin 12.0 g/dL (13.0-17.5) L Hematocrit 38.4 % (39.0-53.0) L Mean Corpuscular Volume 77 fL (79-100) L Mean Corpuscular Hemoglobin 24 pg (25-35) L Mean Corpuscular Hemoglobin Concent 31 g/dL (31-37) Red Cell Distribution Width 16.8 % (11.5-14.5) H Platelet Count 318 x10^3/uL (140-400) Neutrophils (%) (Auto) 57 % (31-73) Lymphocytes (%) (Auto) 34 % (24-48) Monocytes (%) (Auto) 8 % (0-9) Eosinophils (%) (Auto) 1 % (0-3) Basophils (%) (Auto) 1 % (0-3) Neutrophils # (Auto) 4.8 x10^3/uL (1.8-7.7) Lymphocytes # (Auto) 2.8 x10^3/uL (1.0-4.8) Monocytes # (Auto) 0.7 x10^3/uL (0.0-1.1) Eosinophils # (Auto) 0.1 x10^3/uL (0.0-0.7) Basophils # (Auto) 0.1 x10^3/uL (0.0-0.2) Laboratory Tests 07/13/19 05:20 (MARTIN JENSEN MD) EKG EKG EKG reviewed, sinus tachycardia, heart rate 108, normal axis, no evidence of STEMI, interpretation time 0 512[] (MARTIN JENSEN MD) Radiology/Procedures Radiology/Procedures Chest xray - wet ready without acute findings[] (MARTIN JENSEN MD) Course & Med Decision Making Course & Med Decision Making Pertinent Labs and Imaging studies reviewed. (See chart for details) []34-year-old male presents to the emergency Department complaints of chest pressure. Patient states the pain is located in center aspect of his chest with radiation to his left arm. He describes shortness of breath, dizziness. Patient states the pain started around 4 AM. He denies any nausea or vomiting. States the pain is worse with deep breath, nothing makes it better. Patient does have a history of chronic hepatitis, hypertension, family history of coronary artery disease. Heart scores 2. Patient passed off to Dr. Mccormick at shift change. Discussed presentation, disposition to be determined by Dr. Mccormick (MARTIN JENSEN MD) Course & Med Decision Making Patient care transferred to sc at 0600. Patient had unremarkable exam except for chest wall tenderness. Labs was unremarkable. Patient treated with Toradol with improvement of his pain. Plan discharge patient home with diagnosis of musculoskeletal chest pain. I've spoken with the patient and/or caregivers. I've explained the patient's condition, diagnosis and treatment plan based on information available to me at this time. I've answered the patient's and/or caregivers questions and addressed any concerns. The patient and/or caregivers have a good understanding the pat ient's diagnosis, condition and treatment plan as can be expected at this point. Vital signs have been stabilized. The patient's condition is stable for discharge from the emergency department. The patient will pursue further outpatient evaluation with her primary care provider or other designated consulting physician as outlined in the discharge instructions. Patient and/or caregivers are agreeable to this plan of care and follow-up instructions have been explained in detail. The patient and/or caregivers have received these instructions in written format and expressed understanding of these discharge instructions. The patient and her caregivers are aware that if any significant change in condition or worsening of symptoms should prompt him to immediately return to this of the closest emergency department. If an emergent department is not readily available I would encourage him to call 911. (GIOVANNA MCCORMICK MD) Dragon Disclaimer Dragon Disclaimer This electronic medical record was generated, in whole or in part, using a voice recognition dictation system. (MARTIN JENSEN MD) Departure Departure Impression: Primary Impression: Musculoskeletal chest pain Additional Impressions: Hypokalemia Hypomagnesemia Disposition: HOME, SELF-CARE (at 0 645) Condition: IMPROVED Referrals: NO PCP (PCP) Patient Instructions: Chest Wall Pain, Hypokalemia, Hypomagnesemia Additional Instructions: Drink plenty of liquids Follow-up with your primary care physician in 3-5 days Return to ER if not getting better Thank you for visiting [facility]. We appreciate you trusting us with your care. If any additional problems come up don't hesitate to return to visit us. Please follow up with your primary care provider so they can plan additional care if needed and know about the problem that you had. If symptoms worsen come back to the Emergency Department. Any concerning symptoms that start such as chest pain, shortness of air, weakness or numbness on one side of the body, running high fevers or any other concerning symptoms return to the ER. Scripts Naproxen (NAPROSYN) 500 Mg Tablet 1 TAB PO BID for pain, #20 TAB Prov: GIOVANNA MCCORMICK MD 07/13/19 Cyclobenzaprine Hcl (CYCLOBENZAPRINE HCL) 10 Mg Tablet 1 TAB PO TID, #21 TAB Prov: GIOVANNA MCCORMICK MD 07/13/19 Problem Qualifiers MARTIN JENSEN MD Jul 13, 2019 05:28 GIOVANNA MCCORMICK MD Jul 13, 2019 06:45
[2019-07-13 05:29] LABS: BASO # 0.1 x10^3/uL (0.0-0.2); BASO % 1 % (0-3); EOS # 0.1 x10^3/uL (0.0-0.7); EOS % 1 % (0-3); HEMATOCRIT 38.4 % (39.0-53.0); LYMPH # 2.8 x10^3/uL (1.0-4.8); LYMPH % 34 % (24-48); MEAN CORPUSCULAR HEMOGLOBIN 24 pg (25-35); MEAN CORPUSCULAR HGB CONC 31 g/dL (31-37); MEAN CORPUSCULAR VOLUME 77 fL (79-100); MONO # 0.7 x10^3/uL (0.0-1.1); MONO % 8 % (0-9); NEUT # 4.8 x10^3/uL (1.8-7.7); NEUT % 57 % (31-73); PLATELET COUNT 318 x10^3/uL (140-400); RED CELL DISTRIBUTION WIDTH 16.8 % (11.5-14.5); WHITE BLOOD COUNT 8.4 x10^3/uL (4.0-11.0)
[2019-07-13] MEDS: NITROGLYCERIN SUBLINGUAL 0.4 MG BOTTLE OF 25. SL PRN ×3 (05:39→06:05)
[2019-07-13 05:41] LABS: CALCIUM 8.9 mg/dL (8.5-10.1); CREATININE 0.8 mg/dL (0.7-1.3); GFR 133.9; POTASSIUM 3.2 mmol/L (3.5-5.1)
[2019-07-13] MEDS ORDERED: ASPIRIN CHEWABLE 81 MG TABLET. PO ONE (05:45)
[2019-07-13 05:46] LABS: ALBUMIN 3.6 g/dL (3.4-5.0); ALBUMIN/GLOBULIN RATIO 0.9 (1.0-1.7); MAGNESIUM 1.7 mg/dL (1.8-2.4); TOTAL BILIRUBIN 0.1 mg/dL (0.2-1.0); TOTAL PROTEIN 7.8 g/dL (6.4-8.2)
--- NOTE | 2019-07-13 05:56 | EKG ---
[facility] [address] [place] [address] Test Date: 2019-07-13 Test Time: 05:12:08 Pat Name: BRANDO KIRAN Department: Room: Gender: M [employer]: : 1985 Requested By: MARTIN JENSEN Order Number: [id number] Reading MD: Measurements Intervals Edgar Rate: 108 P: -67 GA: 146 QRS: 20 QRSD: 94 T: 16 QT: 340 QTc: 459 Interpretive Statements SINUS TACHYCARDIA LEFT ATRIAL ABNORMALITY QRS(T) CONTOUR ABNORMALITY CONSIDER INFERIOR MYOCARDIAL DAMAGE ABNORMAL ECG RI6.01 No previous ECG available for comparison
--- NOTE | 2019-07-13 06:00 | RAD ---
PORTABLE CHEST 1V Clinical History: Chest pain Technique: AP view of the chest was obtained at 07/13/2019 5:18 AM. Comparison: May 28, 2019. Findings: The cardiomediastinal silhouette is normal. The pulmonary vasculature is normal. The lungs and pleural margins are clear. Impression: No evidence of an acute cardiopulmonary process. Electronically signed by: Cuco Muhammad III, MD (07/13/2019 5:57 AM) [id number]
[2019-07-13 06:05] VITALS: BP 129/72
[2019-07-13] MEDS ORDERED: POTASSIUM CHLORIDE 20 MEQ TABLET.ER. PO ONE (06:30)
[2019-07-13] MEDS ORDERED: MAGNESIUM OXIDE 400 MG TABLET PO ONE (06:30)
[2019-07-13] MEDS ORDERED: KETOROLAC 30 MG/ML VIAL. IVP ONE (06:30)
[2019-07-13] MEDS ORDERED: CYCL10TA2 PO (06:45)
[2019-07-13] MEDS ORDERED: NAPR-683 PO (06:45)
== END 2019-07-13 06:50 | disposition home or self-care (01) ==
LOC: ER 05:01
DX: R07.89 Other chest pain (principal); E87.6 Hypokalemia; E83.42 Hypomagnesemia; R42 Dizziness and giddiness; I10 Essential (primary) hypertension; F17.200 Nicotine dependence, unspecified, uncomplicated
CPT/HCPCS: 36415; 71045; 80053; 83690; 83735; 84484; 85025; 85379; 93005; 96374; 99285; J1885

== ENCOUNTER 2019-08-19 04:21 | Emergency (ER) | payer MEDICAID ==
[~2019-08-19 04:21] MED LIST changes: +CYCL10TA2 PO; +traMADol 50 MG TABLET PO ONE
[2019-08-19] MEDS ORDERED: traMADol 50 MG TABLET ONE (04:29)
[2019-08-19] MEDS ORDERED: HEPARIN for IV BOLUS 10,000 UNIT/10 ML VIAL. ONE (07:42)
== END 2019-08-19 04:31 | disposition home or self-care (01) ==
LOC: ER 04:21
DX: L02.31 Cutaneous abscess of buttock (principal)
CPT/HCPCS: 99283